=== PATIENT | female | born 1950 | race Caucasian/White ===

== ENCOUNTER 2024-09-13 12:13 | Emergency (ER) | payer OTHER, SELFPAY ==
[2024-09-13 12:34] VITALS: BP 187/82; PULSE 77; TEMP 36.6; O2SAT 99; BMI 24.9
--- NOTE | 2024-09-13 12:42 | XR_ITS ---
[address] [address] Patient Name: NURA KIRKPATRICK MRN: [id number] date: 1950 Sex: F Assigned Patient Location: ER Current Patient Location: Accession/Order Number: [id number] Exam Date: 09/13/2024 12:50 Report Date: 09/13/2024 13:15 At the request of: KAMILA CASTILLO Procedure: XR shoulder RT min 2V PROCEDURE: XR shoulder RT min 2V COMPARISON: None. HISTORY: fall FINDINGS: BONES:Limited nonorthogonal nonstandard projections. A dislocation is not excluded. No definite fracture. Moderate spondylosis of the spine SOFT TISSUES:Negative. No visible soft tissue swelling. EFFUSION:None visible. OTHER: Negative. XR/XR shoulder RT min 2V IMPRESSION: Indeterminate for dislocation Electronically authenticated by: JUAN CONTRERAS Date: 09/13/2024 13:15
--- NOTE | 2024-09-13 12:42 | CT_ITS ---
The [address] [address] Patient Name: NURA KIRKPATRICK MRN: [id number] date: 1950 Sex: F Assigned Patient Location: ER Current Patient Location: ER Accession/Order Number: [id number] Exam Date: 09/13/2024 12:50 Report Date: 09/13/2024 13:15 At the request of: KAMILA CASTILLO Procedure: CT head/brain wo con EXAM: CT head/brain wo con HISTORY: fall COMPARISON: None. TECHNIQUE: Axial soft tissue and bone windows through the calvarium with coronal and sagittal reformats. CT dose reduction technique was used including Automated Exposure Control. Findings: No depressed or calvarial fracture. The paranasal sinuses and mastoid air cells are well aerated. No air-fluid levels. No extra-axial fluid collection. No intra-axial or extra-axial bleed. No mass effect or midline shift. The soria-white matter differentiation is preserved. There are white matter low attenuation lesions which are nonspecific but commonly attributed to chronic small vessel ischemic disease. The brain parenchymal volume is reduced yet likely age-appropriate. The ventricles are nondilated. The basal cisterns are patent. The craniovertebral junction is unremarkable. CT/CT head/brain wo con IMPRESSION: 1. No depressed or calvarial fracture. 2. No acute intracranial bleed. 3. Senescent changes. Electronically authenticated by: VANESAS LO Date: 09/13/2024 13:15
--- NOTE | 2024-09-13 13:43 | CT_ITS ---
[address] [address] Patient Name: NURA KIRKPATRICK MRN: [id number] date: 1950 Sex: F Assigned Patient Location: ER Current Patient Location: ER Accession/Order Number: [id number] Exam Date: 09/13/2024 13:50 Report Date: 09/13/2024 14:38 At the request of: KAMILA CASTILLO Procedure: CT shoulder RT wo con EXAMINATION: CT shoulder RT wo con HISTORY: poss dislocation COMPARISON: Plain x-ray same day TECHNIQUE: Multi-planar CT images were created without IV contrast. Dose reduction techniques were achieved by using automated exposure control and/or adjustment of mA and/or kV according to patient size and/or use of iterative reconstruction technique. FINDINGS: BONES: No acute fracture or dislocation. The glenohumeral and acromioclavicular joints are intact. Mild acromioclavicular joint and moderate glenohumeral joint osteoarthritis SOFT TISSUES: Negative. No visible soft tissue swelling. EFFUSION: None visible. OTHER: Partially visualized 5 mm nodule in the right upper lobe axial image 49 CT/CT shoulder RT wo con IMPRESSION: Osteoporosis with no acute fracture or dislocation Electronically authenticated by: JUAN CONTRERAS Date: 09/13/2024 14:38
--- NOTE | 2024-09-13 14:00 | CT_ITS ---
The [address] [address] Patient Name: NURA KIRKPATRICK MRN: [id number] date: 1950 Sex: F Assigned Patient Location: ER Current Patient Location: ER Accession/Order Number: [id number] Exam Date: 09/13/2024 14:04 Report Date: 09/13/2024 15:05 At the request of: KAMILA CASTILLO Procedure: CT facial bones wo con EXAM: CT facial bones wo con HISTORY: trauma COMPARISON: Brain and cervical spine CT is dictated separately. TECHNIQUE: Noncontrast CT of the facial bones FINDINGS: Soft tissue swelling is present over the bridge of the nose with a nondisplaced fracture of both the right and left nasal bones. Orbital contents are symmetrical. No additional facial bone fracture. Mandible and temporomandibular joints are properly aligned. CT/CT facial bones wo con IMPRESSION: Nondisplaced fractures of the bilateral nasal bones. Electronically authenticated by: YVETTE JOYA Date: 09/13/2024 15:05
--- NOTE | 2024-09-13 14:00 | CT_ITS ---
The [address] [address] Patient Name: NURA KIRKPATRICK MRN: [facility]:[id number] date: 1950 Sex: F Assigned Patient Location: ER Current Patient Location: ER Accession/Order Number: [id number] Exam Date: 09/13/2024 14:04 Report Date: 09/13/2024 14:36 At the request of: KAMILA CASTILLO Procedure: CT cervical spine wo con PROCEDURE: CT cervical spine wo con COMPARISON: None. HISTORY: trauma TECHNIQUE: Axial, Coronal, and Sagittal CT images obtained without IV contrast. Dose reduction techniques were achieved by using automated exposure control and/or adjustment of mA and/or kV according to patient size and/or use of iterative reconstruction technique. FINDINGS: PARASPINAL AREA: Normal with no visible mass. DISCS: Mild multilevel disc space narrowing. Posterior disc/osteophyte complex is most significant at C4-5, C5-C6 and C6-C7. No definite central or foraminal stenosis BONES: Normal alignment with no acute fracture or spondylolisthesis. Mild degenerative spondylosis and facet osteoarthropathy OTHER: Negative. CT/CT cervical spine wo con IMPRESSION: No acute traumatic abnormality Electronically authenticated by: JUAN CONTRERAS Date: 09/13/2024 14:36
--- NOTE | 2024-09-13 14:05 | ED_ITS ---
HPI HPI - General Adult General Chief complaint: Head Injury Stated complaint: FELL Time Seen by Provider: 09/13/24 12:43 Source: patient and family Mode of arrival: walk-in Limitations: no limitations History of Present Illness HPI narrative: Patient presents to ED after a fall. She was walking outside of the [employer] and her foot got caught on a lip of cement and she fell forward. She has pain in the right shoulder pain in the nose and upper lip as well as chin. She denies loss of consciousness. She is on a baby aspirin but otherwise no other blood thinners. She denies any chest pain or shortness of breath. She has no hip pain or leg pain. She is alert and oriented and in no acute distress. She denies any neck pain. 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 No other complaints at this time. Related Data Previous Rx's ?Medication ?Instructions ?Recorded amoxicillin 875 mg-potassium 1 tab PO BID 7 days #14 tabs 09/13/24 clavulanate 125 mg tablet tramadol 25 mg tablet 25 mg PO Q6H PRN pain #14 tabs 09/13/24 Allergies Allergy/AdvReac Type Severity Reaction Status Date / Time No Known Drug Allergies Allergy Verified 09/13/24 12:34 Opioid HPI Opioid Management Most Recent Opioid Data: No Data to Display Review of Systems ROS Status of ROS 10 or more systems reviewed and unremark able except as noted in history and below PFSH PFSH Social History Little interest or pleasure in doing things: not at all Feeling down, depressed, or hopeless: not at all Exam Narrative Exam Narrative: Time Seen: [] Vital Signs: [Per nurse's notes.] General: [Alert] Skin: [Warm, dry, no rash.] Head: Nasal bone and ecchymosis and swelling. Abrasion to the nose upper lip and ecchymosis to the chin Neck: [Supple, trachea midline.] Eye: [Pupils are equal, round and reactive to light, extraocular movements are intact, normal conjunctiva.] Ears, nose, mouth and throat: oral mucosa moist. Intraoral laceration on the upper lip, bleeding controlled Cardiovascular: [Regular rate and rhythm, no murmur.] Respiratory: [Lungs are clear to auscultation, respirations are non-labored, breath sounds are equal.] Chest wall: [No tenderness, no deformity.] Gastrointestinal: [Soft, nontender, non distended, normal bowel sounds.] MSK: 5 out of 5 muscle strength x 4 extremities no calf pain or edema. No hip pain, pelvis is stable. Pain with range of motion of the right shoulder. No rmal distal pulses and sensation Lymphatics: [No lymphadenopathy.] Psychiatric: [Cooperative, appropriate mood & affect.] Neurological: [Alert and oriented to person, place, time, and situation, no focal neurological deficit observed.] Constitutional Vital Signs, click to edit/add: Last Vital Signs Temp 98 F 09/13/24 12:34 Pulse 80 09/13/24 15:42 Resp 18 09/13/24 15:42 BP 146/88 H 09/13/24 15:42 Pulse Ox 98 09/13/24 15:42 O2 Del Method Room Air 09/13/24 12:34 Course Vital Signs Vital signs: Vital Signs Temperature 98 F 09/13/24 12:34 Pulse Rate 77 09/13/24 12:34 Respiratory Rate 18 09/13/24 12:34 Blood Pressure 187/82 H 09/13/24 12:34 Pulse Oximetry 99 09/13/24 12:34 Oxygen Delivery Method Room Air 09/13/24 12:34 Temperature 98 F 09/13/24 12:34 Pulse Rate 80 09/13/24 15:42 Respiratory Rate 18 09/13/24 15:42 Blood Pressure 146/88 H 09/13/24 15:42 Pulse Oximetry 98 09/13/24 15:42 Oxygen Delivery Method Room Air 09/13/24 12:34 Medical Decision Making MDM Narrative Medical decision making narrative: Patient CT scans are negative except for nasal bone fracture. X-ray of the shoulder was inconclusive and CT of the shoulder does not show any acute fractur e or dislocation. Patient was placed in a shoulder sling for comfort. She has a follow-up with Dr. Hart on Wednesday at 1230. She was given pain medication for home. Wound care to the abrasions on the face. The intraoral laceration will heal fine on its own. Return to ED if worsening symptoms confusion nausea vomiting or any further concerns. Patient and family are comfortable care plan for home Differential Diagnosis Differential Diagnosis: Fracture sprain strain contusion abrasion Imaging Data CT scan - head: Radiologist's impression: ITS Impressions Head CT 09/13/24 12:42 IMPRESSION: 1. No depressed or calvarial fracture. 2. No acute intracranial bleed. 3. Senescent changes. Electronically authenticated by: VANESSA LO Date: 09/13/2024 13:15 Shoulder X-Ray 09/13/24 12:42 IMPRESSION: Indeterminate for dislocation Electronically authenticated by: JUAN CONTRERAS Date: 09/13/2024 13:[address] 09/13/24 13:43 IMPRESSION: Osteoporosis with no acute fracture or dislocation Electronically authenticated by: JUAN CONTRERAS Date: 09/13/2024 14:[address] 09/13/24 14:00 IMPRESSION: No acute traumatic abnormality Electronically authenticated by: JUAN CONTRERAS Date: 09/13/2024 14:[address] 09/13/24 14:00 IMPRESSION: Nondisplaced fractures of the bilateral nasal bones. Electronically authenticated by: YVETTE JOYA Date: 09/13/2024 15:05 Discharge Plan Discharge Chief Complaint: Head Injury Clinical Impression: Shoulder sprain, Fracture of nasal bone, Laceration of lip, Abrasion head Patient Disposition: Home, Self-Care Time of Disposition Decision: 15:21 Condition: Good Mode of Transportation: Private Vehicle Prescriptions / Home Meds: New amoxicillin-pot clavulanate 875-125 mg tablet 1 tab PO BID 7 Days Qty: 14 0RF tramadol 25 mg tablet 25 mg PO Q6H PRN (Reason: pain) Qty: 14 0RF Print Language: Faroese Instructions: Nasal Fracture (ED), Shoulder Sprain (ED), Abrasion (ED) Referrals: Quang Lopez DO [Primary Care Provider] - 1 week Fuentes Hart MD [Physician] - 09/18/24 12:30 pm Discharge Date/Time: 09/13/24 15:43
[2024-09-13 14:24] VITALS: BP 166/88; PULSE 70; O2SAT 98
[2024-09-13] MEDS: BACITRACIN 0.9 GM PACKET 1 PACKET TOPICAL (15:41)
[2024-09-13 15:42] VITALS: BP 146/88; PULSE 80; O2SAT 98
== END 2024-09-13 15:43 | disposition home or self-care (01) ==
PROVIDERS: Emergency Provider Emergency Medicine; PCP Family Medicine
DX: S43.401A Unspecified sprain of right shoulder joint, initial encounter (principal); S01.511A Laceration without foreign body of lip, initial encounter; S02.2XXA Fracture of nasal bones, initial encounter for closed fracture; W01.0XXA Fall on same level from slipping, tripping and stumbling without subsequent striking against object, initial encounter; M81.0 Age-related osteoporosis without current pathological fracture; S00.91XA Abrasion of unspecified part of head, initial encounter; Z79.82 Long term (current) use of aspirin
CPT/HCPCS: 70450; 70486; 72125; 73030; 73200; 99285

== ENCOUNTER 2024-10-03 14:20 | Outpatient (OUT) | payer OTHER, MEDICARE, SELFPAY ==
--- NOTE | 2024-10-03 14:38 | MR_ITS ---
[place] [id number] Patient Name: NURA KIRKPATRICK MRN: [id number] date: 1950 Sex: F Assigned Patient Location: MRI Current Patient Location: Accession/Order Number: [id number] Exam Date: 10/03/2024 14:45 Report Date: 10/05/2024 04:41 At the request of: DENNIS BRANTLEY Procedure: MR shoulder RT wo con EXAMINATION: MR shoulder RT wo con HISTORY: Acute Pain Of Right Shoulder 25.511 COMPARISON: No relevant comparison available. TECHNIQUE: A variety of imaging planes and parameters were utilized for visualization of suspected pathology. Imaging was performed without or with contrast as indicated by examination type. FINDINGS: ROTATOR CUFF REGION CUFF TENDONS: Severe increased signal intensity in the supraspinatus tendon indicates tendon degeneration and/or tendinitis. No katarina tear is seen. Marked increased signal intensity within the subscapularis tendon without appreciable disruption. CUFF MUSCLES: Normal appearing muscles. DELTOID: No significant atrophy or tear. LONG BICEPS TENDON: No abnormal signal, attrition, or tear. LABRUM/BICEPS ANCHOR SUPERIOR: No visible labral tear or biceps anchor pathology. ANTERIOR/INFERIOR: No visible tear or attrition. POSTERIOR: No posterior labrum abnormality. CAPSULE No visible capsular laxity or thickening. AC JOINT REGION AC JOINT: Moderate osteoarthropathy with mild-moderate narrowing of the underlying coracoacromial arch. AC LIGAMENTS: Normal acromioclavicular ligament. CC LIGAMENTS: Normal coracoclavicular ligaments. ACROMION: Normal horizontal (Type I) configuration. SUBACROMIAL BURSA: Trace amount of fluid within the subacromial-subdeltoid bursa. HYALINE CARTILAGE: No visible cartilage narrowing or focal defect. OTHER BONES: Normal proximal humerus, glenoid, and coracoid. OTHER OBSERVATIONS: No other significant findings or glenohumeral effusion. MR/MR shoulder RT wo con IMPRESSION: 1. High-grade tendinitis/tendinopathy of the supraspinatus tendon and subscapularis tendon without convincing tear. 2. Moderate degenerative changes of the acromioclavicular joint. Electronically authenticated by: KELI PITTMAN Date: 10/05/2024 04:41
== END 2024-10-03 14:21 | disposition home or self-care (01) ==
LOC: MRI 14:25
PROVIDERS: PCP Family Medicine; Visit Provider Physician Assistant
DX: M25.511 Pain in right shoulder (principal); M75.31 Calcific tendinitis of right shoulder; M19.011 Primary osteoarthritis, right shoulder
CPT/HCPCS: 73221

== ENCOUNTER 2024-11-17 12:49 | Outpatient (RCR) | payer OTHER, MEDICARE, SELFPAY | END 2024-12-16 08:14 | disposition home or self-care (01) | LOC: PT 12:49 | PROVIDERS: PCP Family Medicine; Visit Provider Orthopaedic Surgery | DX: M75.81 Other shoulder lesions, right shoulder (principal); M75.101 Unspecified rotator cuff tear or rupture of right shoulder, not specified as traumatic | CPT/HCPCS: 97110; 97161 ==

== ENCOUNTER 2025-08-31 09:53 | Outpatient (OUT) | payer OTHER, MEDICARE, SELFPAY ==
--- OUTSIDE RECORDS SUMMARY | 2025-08-31 10:02 | XMS_ITS | Patient Health Record ---
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 .PLEASE OBTAIN AUTHORIZATION FOR MRI RIGHT SHOULDER Diagnosis 1 Acute pain of right shoulder (M25.511) Referral Organization [facility] Referring Provider First Name Fuentes Referring Provider Last Name Tanner Referring Provider Speciality Orthopedic Surgery Referred Organization [facility] yuli Referred Address [place], [place], Procedure 1 MRI Joint Upper Ext w/o Dye ([id number]) General Notes Liat Hilliard 024 10:18:51 AM >PER [facility], PATIENT IS ACTIVE PART A AND PART B, NO AUTH REQUIRED MA NOTIFIED REF FAXED TO Jared HAMMOND Kimberly 09/19/2024 05:06:50 PM > Faxed to [place] Referral Priority Routine Social History Tobacco Use: Social History Observation Description Date Details (start date - stop date) Never Smoker NA - NA AUDIT-C (Standard) Question Answer Notes Did you have a drink containing alcohol in the p ast year? No Evocoo9UrwrezirikzxazCvkhjyxlKabxdod Control (Standard) Question Answer Notes Tobacco use: Nonsmoker Problems Problem Type SNOMED Code ICD Code Onset Dates Problem Status W/U Status Risk Notes Problem [id number] Traumatic inc omplete tear of right rotator cuff, initial encounter (S46.011A) [id number] of right rotator cuff, unspecified tear extent, unspecified whether traumatic (M75.101)Activeconfirmed Vital Signs Height 4'9 in 01/01/2025 [employer]479 lbs01/01/2025BMI24.8801/01/2025 Encounters Encounter Location Date Provider Diagnosis [facility] [address] [place] [address] 09/18/2024 Marya Schulte Acute pain of right shoulder M25.511 [facility] [address] [place] [address] 10/09/2024 Fuentes Hart Traumatic incomplete tear of right rotator cuff, initial encounter S46.011A [facility] [address] [place] [address] 11/06/2024 [facility] Right rotator cuff tendonitis M75.81 and Tear of right rotator cuff, unspecified tear extent, unspecified whether traumatic M75.101 [facility] [address] [place] [address] 01/01/2025 Marya [facility] Right rotator cuff tendonitis M75.81 and Traumatic incomplete tear of right rotator cuff, initial encounter S46.011A [facility] [address] [place] [address] 02/26/2025 Fuentes Hart Bursitis of right shoulder M75.51 ; Right shoulder tendonitis M77.8 and Tear of right rotator cuff, unspecified tear extent, unspecified whether traumatic M75.101 Assessments Encounter Date Diagnosis (ICD Code) Assessment Notes Treatment Notes Treatment Clinical Notes Section Notes 09/18/2024 Acute pain of right shoulder ( D-10 - M25.511) Right rotator cuff tear10/09/2024Traumatic incomplete tear of right rotator cuff, initial encounter (ICD-10 - S46.011A)11/06/2024Right rotator cuff tendonitis (ICD-10 - M75.81)11/06/2024Tear of right rotator cuff, unspecified tear extent, unspecified whether traumatic (ICD-10 - M75.101)01/01/2025Right rotator cuff tendonitis (ICD-10 - M75.81)01/01/2025Traumatic incomplete tear of right rotator cuff, initial encounter (ICD-10 - S46.011A)02/26/2025ursitis of right shoulder (ICD-10 - M75.51)02/26/2025Right shoulder tendonitis (ICD-10 - M77.8)02/26/2025Tear of right rotator cuff, unspecified tear extent, unspecified whether traumatic (ICD-10 - M75.101)09/18/2024OtherFor the patient's shoulder pain after fall I have ordered an MRI of the shoulder to evaluate for any rotator cuff tearing. We will see her back after imaging is complete to review and offer further recommendations. I did demonstrate some stretching that she can do on her own while we are waiting for the results. She can discontinue the sling as tolerated.Right rotator cuff tear10/09/2024Other For right shoulder injury I recommended additional 2 weeks of rest. I reviewed home exercises to work on restoring motion which she is to start in 2 weeks. She will follow-up in 4 weeks to reassess her progress and at that time likely get her into physical therapy. Import medication 11/06/2024OtherFor the patient's shoulder pain she is over 2 months out from her fall and doing better as her motion has returned to normal. I did give her a prescription for physical therapy as she is still havingsome pain with certain movements and we will see her back in 6 weeks.01/01/2025OtherPatient is doing well overall but is still having some pain and some reduced internal rotation making it difficult for some activities of daily living. I did discuss risks and benefits of doing a corticosteroid injection and patient wished to proceed. I did provide this for her today. I encouraged her to continue her home exercises to improve her internal rotation. We will see her back in 8 weeksfor reevaluation.02/26/2025OtherPatient had good relief with the previous steroid injection and like to repeat a right shoulder injection today. Plan Of Treatment No Information Insurance Providers Payer Name Payer Address Payer Phone Subscriber Number Group Number Insured Name Patient Relationship to Insured Coverage Start Date Coverage End [place] [address] [place] [address] [id number] Jacqueline KIRKPATRICK - patient is the insured[facility] HospitalPO [address] [address] [place] [id number], DONNASelf - patient is the insured Medications Administered Medication Instructions Date of Administration Dosage Notes BUPIVACAINE vFWPMEBZGWFLZ71/05/20252 mLDepo-Hnouse24 mLDepo-Medrol ePrbwmbqbpv62/10/20252 pTfglmtroay87/05/20252 mL Medical (General) History Medical History History ICD Code Cancer High Blood PressureHepatitisBariatric Surgery:Surgical History Surgery Date(Month/Year) Heel spur Rotator cuffBariatric [id number]
--- OUTSIDE RECORDS SUMMARY | 2025-08-31 10:04 | XMS_ITS | CCD ---
[facility] [place] [facility] Team Providers Care Model Photographers' Name Role Phone RHIANNA HUTCHISON Unavailable Unavailable RHIANNA HUTCHISON Unavailable Unavailable Kuns, Quang Unavailable Kuns, DO Quang Primary Care Provider Kuns, DO Quang Attending Provider Kuns, DO Quang Referring Provider Self, Referral Attending Provider Unavailable RHIANNA HUTCHISON Referring Unavailable RHIANNA HUTCHISON Attending Unavailable Kuns, DO Quang Primary Care Provider Kuns, DO Quang Attending Provider Self, Referral Attending Provider Unavailable Kuns, DO Quang Primary Care Provider Kuns, DO Quang Attending Provider Self, Referral Attending Provider Unavailable Kuns DOQuang Primary Care Provider Kuns DOQuang Attending Provider [phone] Kuns DOQuang Primary Care Provider Kuns Quang DAVILA Attending Provider Kuns, Quang Primary Care Unavailable Kuns, Quang Attending Unavailable Kuns, Quang Admitting Unavailable Kuns, Quang Primary Care Unavailable Kuns, Quang Attending Unavailable Kuns, Quang Admitting Unavailable Kuns, Quang Attending Unavailable Kuns, Quang Admitting Unavailable Kuns, Quang Primary Care Unavailable Kuns, Quang Primary Care Unavailable Kuns, Quang Attending Unavailable Kuns, Quang Admitting Unavailable Self, Referral Admitting Unavailable Self, Referral Attending Unavailable Kuns, Quang Primary Care Unavailable Kuns, Quang Primary Care Unavailable Kuns, Quang Attending Unavailable Kuns, Quang Admitting Unavailable Kuns, Quang Primary Care Unavailable Quang Lopez Attending Unavailable Quang Lopez Admitting Unavailable Quang Lopez Primary Care Unavailable Quang Lopez Attending Unavailable Quang Lopez Admitting Unavailable Allergies Allergy ClassificationReported Allergen(s)Allergy TypeDate of OnsetReaction(s) Facility (16 sources)celecoxib; Translations: [CELECOXIB]Drug Booedza17-99-0931tnlma [facility] Repository (18 sources)rofecoxib; Translations: [ROFECOXIB]Drug Bpijlvn07-30-2924Cfilutq ReactionMercy Health [facility] Hospital RepositoryComment on above:retain fluids (4 sources)celecoxibDrug AllergyedemaNaval Hospital [facility] [employer] Other (4 sources)valdecoxibDrug AllergyP[facility] [employer] Other (16 sources)valdecoxib; Translations: [valdecoxib]Drug Sbcdrpp58-29-1060Lzjpaow Reaction, Unknown Reaction, edemaAultman HospitalComment on above:retain fluids Medications Current Medications MedicationDrug Class(es)DatesSig (Normalized)Sig (Original)Aspir-81 81 MG (4 sources)take 1 tablet by mouth once dailyAspir-81 81 MG 1 tablet Orally Once a day Activeaspirin 81 mg delayed release oral tablet (15 sources)Platelet Aggregation Inhibitor, Nonsteroidal Anti-inflammatory Drug Start: 28-97-6254zqjq 1 tablet by mouth once dailybiotin 10 mg oral capsule (19 sources)Start: 30-90-5993guwn 1 capsule by mouth once dailytake 1 capsule by mouth twice dailyBiotin 5000 1 1 cap By Mouth BID Activecalcium citrate 500 mg oral tablet (4 sources)take 1 capsule by mouth once dailyCalcium Citrate 500 mg 1 cap(s) p.o. Once a day Activecalcium citrate 1500 mg / cholecalciferol 200 unt oral tablet (15 sources)Vitamin DStart: 99-01-3015ajgg 1 tablet by mouth three times daily Centrum 2 (4 sources)Centrum 2 2 chews By Mouth Daily Activeferrous sulfate 325 mg oral tablet (19 sources)Start: 81-35-0188pnee 1 tablet by mouth once dailytake 1 tablet by mouth once dailyFerrous Sulfate 325 (65 Fe) MG 1 tablet Orally Once a day Active Magnesium (19 sources)Start: 58-82-5377lmga 2 tablets by mouth once dailyStart: 01-16-2019 take 2 tablets by mouth once dailyMagnesium 200 mg Tablet Active 400 MG PO Daily January 16, 2019 12:00am Complies with drug therapyStart: 08-69-8089czxj 2 tablets by mouth once dailyMagnesium 200 mg Tablet Active 400 MG PO Daily January 16, 2019 12:00amStart: 83-47-3077ucfy 2 tablets by mouth once dailyMagnesium 200 mg Tablet Active 400 MG PO Daily January 15, 2019 11:00pmStart: 01-16-2019 take 400 mg by mouth once dailyMagnesium Active 400 MG PO Daily January 15, 2019 11:00pmStart: 06-05-9493jhgd 400 mg by mouth once dailyMagnesium Active 400 MG PO Daily January 16, 2019 12:00amtake 2 tablets by mouth once dailyMagnesium 200 MG 2 tablets with a meal Orally Once a day Activemelatonin 10 mg oral tablet (20 sources)Start: 85-36-1494ljnr 1 tablet by mouth at bedtime as needed for sleepStart: 88-41-7116objr 1 tablet by mouth at bedtime as needed for sleep Start: 77-64-2983mnce 1 tablet by mouth at bedtimeMelatonin 3 MG 1 tablet along with a 10 mg tablet Orally HS Dec, Activetake 1 tablet by mouth at bedtimeMelatonin 10 MG 1 tablet along with a 3 mg tablet Orally HS Active Multivitamin preparation (7 sources)Start: 94-21-5360lvsl 2 tablets by mouth once dailyMultivitamin Active 2 TAB PO Daily January 15, 2019 11:00pmStart: 98-70-3705gmrw 2 tablets by mouth once dailyMultivitamin Active 2 TAB PO Daily January 16, 2019 12:00am Multivitamin Tablet,Chewable (8 sources)Start: 37-03-7802pxgv 2 tablets by mouth once dailyStart: 01-16-2019 take 2 tablets by mouth once dailyMultivitamin Tablet,Chewable Active 2 TAB PO Daily January 16, 2019 12:00am Complies with drug therapyStart: 27-26-2120feil 2 tablets by mouth once dailyMultivitamin Tablet,Chewable Active 2 TAB PO Daily January 16, 2019 12:00amStart: 85-62-9716uvgw 2 tablets by mouth once daily Multivitamin Tablet,Chewable Active 2 TAB PO Daily January 15, 2019 11:00pm sucralfate 1000 mg oral tablet (20 sources)Aluminum ComplexStart: 11-11-5669asvy 1 tablet by mouth twice daily Start: 36-39-2984pkfy 1 tablet by mouth once dailySucralfate 1 GM 1 tablet on an empty stomach Orally 1 time per day for 90 days Oct, ActiveStart: 52-88-0152ulof 1 tablet by mouth every other daySucralfate 1 GM 1 tablet on an empty stomach Orally every other day for 30 day(s) Oct, ActiveStart: 98-64-3282xuuw 1 tablet by mouth every other daySucralfate 1 GM 1 tablet on an empty stomach Orally every other day for 30 day(s) Oct, ActiveStart: 09-25-2020 End: 84-54-9031wuwd 1 tablet by mouth four times dailySucralfate 1 gram tablet Discontinued 1 GM PO Four times daily 360 90 February 16, 2024 11:46am August 30, 2024 10:24amtake 1 tablet by mouth every twelve hoursCarafate 1 GM 1 tablet Orally Twice a day Not-Taking Completed/Discontinued Medications MedicationDrug Class(es)DatesSig (Normalized)Sig (Original)cholecalciferol 0.05 mg oral tablet (19 sources)Vitamin DStart: 01-16-2019 End: 64-25-6701cxcf 1 tablet by mouth once dailyCholecalciferol (Vitamin D3) (Vitamin D3) 2,000 unit Tablet Discontinued 2000 UNIT PO Daily January 16, 2019 12:00am February 16, 2024 11:02amtake 1 tablet by mouth every twenty-four hours Vitamin D 50 MCG (2000 UT) 1 tablet Orally Once a day ActiveDiclofenac (4 sources)Nonsteroidal Anti-inflammatory DrugStart: 10-58-8320Urowuqea 1 % apply 1-2 grams to affected area Transdermal BID PRN for 30 days Jun, Not-TakingStart: 44-19-8577Dupvnwmc 1 % apply 1-2 grams to affected area Transdermal BID PRN for 30 days Jun, Not-Takingfluocinonide 0.5 mg/ml topical cream (4 sources)CorticosteroidStart: 88-07-5003Wyxmrcsiiseh 0.05 % 1-2 grams up to 3 times weekly with PT phonophoresis Jun, Not-TakingStart: 07-02-2020 Fluocinonide 0.05 % 1-2 grams up to 3 times weekly with PT phonophoresis Jun, Not-Takingmetoprolol tartrate 25 mg oral tablet (20 sources)beta-Adrenergic BlockerStart: 12-23-2023 End: 98-95-9086fwju 0.5 tablet by mouth once daily in the morning, then take 0.5 tablet by mouth once daily in theeveningMetoprolol Tartrate 25 mg tablet Discontinued MG PO December 23, 2023 1:00am December 23, 2023 1:38pm FreeTextSi/2 tab QAM and 1/2 tab QPM Orally as directed; Note: Source Status: Continue; Provider: Jessica Del Rio PStart: 01-16-2019 End: 39-06-0147Qptrpjhdik Tartrate 25 mg tablet Discontinued 12.5 MG PO Twice daily December 13, 2024 11:21amAugust 2024 10:58amStart: 01-16-2019 End: 14-73-9145wvhx 12.5 mg by mouth twice dailyMetoprolol Tartrate Discontinued 12.5 MG PO Twice daily December 23, 2023 12:37pm May 1:06pm Start: 45-71-0776kzre 0.5 tablet by mouth once daily in the morning, then take 0.5 tablet by mouth once daily in theeveningMetoprolol Tartrate 25 MG 1/2 tab QAM and 1/2 tab QPM Orally as directed February, ActivepredniSONE 20 mg oral tablet (16 sources)Start: 04-03-2025 End: 53-68-8080Fgihnjbcud 20 mg tablet Discontinued 20 MG PO .COMPLEX April 03, 2025 12:00am July 06, 2025 11:01am 20 mg orally BID for five days, QD for five days;Start: 08-30-2024 End: 07-05-5404Suuuqwmkgd 10 mg tablet Discontinued 10 MG PO As Directed August 30, 2024 1:00am October 02, 2024 12:02pm BID x 5 days then daily x 5 daysTriamcinolone (4 sources)CorticosteroidStart: 70-98-2401Abaubil -40 mg Jun, 40 mg Problems Active Problems Problem ClassificationProblemDateDocumented DateEpisodic/ChronicAbdominal pain (20 sources)Left sided abdominal pain; Translations: [Unspecified abdominal pain]Onset: 535511-87-6019AqrurowyFfvtpi of uterus (5 sources)Malignant neoplasm of uterus; Translations: [Malignant neoplasm of uterus, part unspecified]Onset: 76-64-9908QycakzpYcaugerdzkv and hemorrhagic disorders (16 sources)Finding related to bruising; Translations: [Spontaneous ecchymoses] Onset: 829585-85-7627KkdemisiFpkhkymf mellitus without complication (12 sources)Hyperglycemia; Translations: [Hyperglycemia, unspecified]Episodic Diseases of white blood cells (4 sources)Eosinophil count raised; Translations: [Eosinophilia]ChronicDisorders of lipid metabolism (20 sources)Hyperlipidemia; Translations: [Hyperlipidemia, unspecified]Onset: 94-21-2029GhlklyuTegysrpliyozku and diverticulitis (4 sources)Diverticulosis of sigmoid colon; Translations: [Diverticulosis of large intestine without perforation or abscess without bleeding]Chronic Esophageal disorders (4 sources)Gastroesophageal reflux disease; Translations: [Gastro-esophageal reflux disease without esophagitis]ChronicEssential hypertension (20 sources)Hypertensive disorder; Translations: [Essential (primary) hypertension]Onset: 05-20-2022 Resolved: 03-75-6294DaldstqKelhxaudeehkgz ulcer (except hemorrhage) (20 sources)Gastrojejunal ulcer; Translations: [Gastrojejunal ulcer, unspecified as acute or chronic, without hemorrhage or perforation]Onset: 43-02-7825Xdzfzfc Headache; including migraine (4 sources)Episodic tension-type headache; Translations: [Episodic tension-type headache, not intractable]ChronicNutritional deficiencies (20 sources)Vitamin D deficiency; Translations: [Vitamin D deficiency, unspecified]Onset: 05-20-2022 Resolved: 74-31-1494VivcbutUxvmgsgvkjb deficiencies (13 sources)Iron deficiency; Translations: [Iron deficiency]Onset: 05-20-2022 Resolved: 02-89-8979OtzriqkxRhyam connective tissue disease (11 sources)Fibromyalgia; Translations: [Fibromyalgia]27-23-1388RiohpztqOikha connective tissue disease (1 source)Fibromyalgia; Translations: [Myalgia and myositis, unspecified] 09-61-9932RwebostrHjhkf diseases of kidney and ureters (3 sources)Cyst of kidney; Translations: [Cyst of kidney, acquired]07-23-2025 EpisodicOther gastrointestinal disorders (4 sources)History of bariatric surgical procedure; Translations: [Bariatric surgery status]EpisodicOther gastrointestinal disorders (4 sources)Stool DNA-based colorectal cancer screening positive; Translations: [Other fecal abnormalities]EpisodicOther gastrointestinal disorders (4 sources)Dysphagia; Translations: [Dysphagia, unspecified]EpisodicOther gastrointestinal disorders (15 sources)Occult blood in stools; Translations: [Other fecal abnormalities] 43-69-2237ZllatdgkZdzis gastrointestinal disorders (12 sources)Altered bowel function; Translations: [Change in bowel habit] 78-64-9825TcargksvLlrta gastrointestinal disorders (12 sources)Abdominal mass; Translations: [Intra-abdominal and pelvic swelling, mass and lump, unspecified site]59-57-4684DappsoqnQvzlh gastrointestinal disorders (1 source)Intra-abdominal and pelvic swelling, mass and lump, unspecified site; Translations: [Intra-abdominal and pelvic swelling, mass and lump, unspecified site]Onset: 68-45-4860MurufkvkWzjee gastrointestinal disorders (1 source)Change in bowel habit; Translations: [Change in bowel habit]Onset: 15-62-7247CjgcmvloJbujm injuries and conditions due to external causes (1 source)Food in respiratory tract, part unspecified causing other injury, initial encounter; Translations: [Food in respiratory tract, part unspecified causing other injury, initial encounter]Onset: 37-18-5709YhtptgvdVpfii non- traumatic joint disorders (4 sources)Arthralgia of the lower leg; Translations: [Pain in right knee] EpisodicOther non-traumatic joint disorders (4 sources)Pain in wrist; Translations: [Pain in left wrist]EpisodicOther nutritional; endocrine; and metabolic disorders (15 sources)Unintentional weight loss; Translations: [Abnormal weight loss] 82-64-6727LdlzydrjBdmeh nutritional; endocrine; and metabolic disorders (1 source)Abnormal weight loss; Translations: [Abnormal weight loss]Onset: 50-68-3716ZhsdavocTnmzhvlj codes; unclassified (4 sources)H/O: GIT by-pass; Translations: [Other specified postprocedural states]EpisodicResidual codes; unclassified (4 sources)Insomnia; Translations: [Insomnia, unspecified]EpisodicResidual codes; unclassified (13 sources)Postmenopausal state; Translations: [Asymptomatic menopausal state] 23-74-0543OdpxwhtnFscwogbccynn (1 source)Unknown / UNK(Unknown)Onset: 03-32-1114Nwqleerdtyht (1 source)Food entering into or through a natural orifice, initial encounter; Translations: [Food entering into or through a natural orifice, initial encounter]Onset: 05-29-5811Jhdfk infection (4 sources)Herpes zoster; Translations: [Zoster without complications]Episodic Past or Other Problems Problem ClassificationProblemDateDocumented DateEpisodic/ChronicOther connective tissue disease (3 sources)Pain in right arm; Translations: [Pain in limb]Onset: 08-31-2024 46-80-3449CyohbjygXiqgl gastrointestinal disorders (1 source)Bariatric surgery statusOnset: 05-20-2022 Resolved: 64-46-1679NtxlaatqYqpad non-traumatic joint disorders (11 sources)Pain in right shoulder; Translations: [Pain in joint, shoulder region]Onset: 200082-03-8907UepqwucdGplyz screening for suspected conditions (not mental disorders or infectious disease) (6 sources)Mammography abnormal; Translations: [Other abnormal and inconclusive findings on diagnostic imagingof breast]Onset: 05-20-2022 Resolved: 92-09-7859LppagqsdSeetjckz codes; unclassified (4 sources)Asymptomatic menopausal state; Translations: [Asymptomatic postmenopausal status (age-related) (natural)]Onset: 627943-58-2046 EpisodicUnclassified (1 source)Lumbar pain M54.50Unclassified (1 source)History of COVID-19 Z86.16 Results Test NameValueInterpretationReference RangeFacilityFL upper GI w air*on 50-63-3493NU upper GI w air*[facility] [address] [address] Fluoroscopy Report Signed Patient: Kavya Cade MR#: [id number] : 1950 Acct:[id number] Age/Sex: 75 / F ADM Date: 07/31/25 Loc: XD Room: Type: [facility] Attending Dr: Quang Lopez DO Copies to: Quang Lopez DO Ordering Provider: Quang Lopez DO Date of Service: 07/31/25 FL/FL upper GI w air*: R10.9 - Unspecified abdominal pain FL upper GI w air* 07/31/2025 9:01 AM SIGNS AND SYMPTOMS: Lower abdominal pain, irregular bowel movements PROTOCOL: Fluoroscopic and radiographic images of the abdomen were obtained after oral gas crystals administration and during administration of oral barium based contrast material. COMPARISON: 07/13/2025 FINDINGS: Core Driller Helper radiograph demonstrates surgical clips in the upper quadrants. There is a levoconvex curvature of the thoracolumbar spine with degenerative changes throughout. There is adequate passage of contrast through the esophagus and gastroesophageal junction. There is no mucosal fold thickening, mass, stricture, or ulceration. Contrast is noted penetrating the larynx and lining the anterior trachea on lateral swallows consistent with aspiration of thick barium based contrast material. The contrast administration was terminated at this point. Follow-up with modified barium swallow study is recommended. Images of the stomach and small bowel demonstrates gastric bypass changes with a small diverticulum along the gastric fundus projecting superiorly to the left of midline. There is active gastroesophageal reflux during the exam reaching the proximal third of the esophagus. Contrast passes from the stomach into the small bowel. The small bowel shows no evidence of mass, mucosal thickening, ulceration, or stricture. Cumulative Air Kerma in mGy: 40.45 mGy FL/FL upper GI w air* IMPRESSION: Changes are consistent with gastric bypass. A small diverticulum is noted along the gastric fundus projecting superiorly and to the left of midline. A large amount of gastroesophageal reflux is demonstrated with contrast material reaching the proximal third of the esophagus. The patient aspirated thick barium based contrast material with contrast noted lining the anterior trachea. Follow-up with modified barium swallow study is recommended along with speech pathology consult. Impression dictated by: Alphonso Guerrier M.D. 07/31/2025 10:36 AM Dictation Location: [facility]--24 Transcribed By: BHAVANA 07/31/25 1036 Dictated By: Alphonso Guerrier II, MD 07/31/25 1033 Signed By: 07/31/25 1036[facility] Physician GroupFluoroscopy reportOrdered By: Alphonso Guerrier on 05-32-4907BM Unspecified body region [facility] Shock [address] [place] [address] Fluoroscopy Report Signed Patient: Kavya Cade MR#: [id number] : 1950 Acct:[id number] Age/Sex: 75 / F ADM Date: 5 Loc: XD Room: Type: [facility] Attending Dr: Quang Lopez DO Copies to: Quang Lopez DO~ Ordering Provider: Quang Lopez DO Date of Service: 07/31/25 FL/FL upper GI w air*: R10.9 - Unspecified abdominal pain FL upper GI w air* 07/31/2025 9:01 AM SIGNS AND SYMPTOMS: Lower abdominal pain, irregular bowel movements PROTOCOL: Fluoroscopic and radiographic images of the abdomen were obtained after oral gas crystalsadministration and during administration of oral barium based contrast material. COMPARISON: 07/13/2025 FINDINGS: Core Driller Helper radiograph demonstrates surgical clips in the upper quadrants. There is alevoconvex curvatureof the thoracolumbar spine with degenerative changes throughout. There is adequate passage of contrast through the esophagus and gastroesophageal junction. There is no mucosal fold thickening, mass, stricture, or ulceration. Contrast is noted penetrating the larynx and lining the anterior trachea on lateral swallows consistent with aspiration of thick barium based contrast material. The contrast administration was terminated at this point. Follow-up with modified barium swallow study is recommended. Images of the stomach and small bowel demonstrates gastric bypass changes with asmall diverticulum along the gastric fundus projecting superiorly to the left ofmidline. There is active gastroesophageal reflux during the exam reaching the proximal third of the esophagus. Contrast passes from the stomach into the small bowel. The small bowel shows no evidence of mass, mucosal thickening, ulceration, or stricture. Cumulative Air Kerma in mGy: 40.45 mGy FL/FL upper GI w air* IMPRESSION: Changes are consistent with gastric bypass. A small diverticulum is noted alongthe gastric fundus projecting superiorly and to the left of midline. A large amount of gastroesophageal reflux is demonstrated with contrast materialreaching the proximal third of the esophagus. The patient aspirated thick barium based contrast material with contrast noted lining the anterior trachea. Follow-up with modified barium swallow study is recommended along with speech pathology consult. Impression dictated by: Alphonso Guerrier M.D. 07/31/2025 10:36 AM Dictation Location: [facility]--24 Transcribed By: BHAVANA 07/31/25 1036 Dictated By: Alphonso Guerrier II, MD 07/31/25 1033 Signed By: 07/31/25 1036 [facility] Work Phone: HbA1c HPLC (Bld) [Mass fraction]Ordered By: Quang Lopez on 31-09-3313OeM7t (Bld) [Mass fraction]5.1 %[facility] HospitalCT abdomen pelvis w conon 05-38-2926LL abdomen pelvis w [facility] Shock [address] [place] [address] CT Scan Report Signed Patient: Kavya Cade MR#: [id number] : 1950 Acct:[id number] Age/Sex: 75 / F ADM Date: 07/13/25 Loc: CT Room: Type: [facility] Attending Dr: Quang Lopez DO Copies to: Quang Lopez DO Ordering Provider: Quang Lopez DO Date of Service: 07/13/25 CT/CT abdomen pelvis w con: R10.9 - Unspecified abdominal pain CT Abdomen and Pelvis withcontrast TECHNIQUE: Axial imaging with 2-D reconstruction. The CT exam was performed using one or more the following dose reduction techniques: Automated exposure control, adjustment of the MA and/or Kv according to patient size, or use of the iterative reconstruction technique. COMPARISON: None History: Abdominal pain. Back pain. LIMITATIONS: None LOWER THORAX Unremarkable LIVER: Mild hepatic steatosis. GALLBLADDER: Cholecystectomy clips identified. BILE DUCTS: No dilatation SPLEEN: Unremarkable PANCREAS: Unremarkable ADRENAL GLANDS: Unremarkable KIDNEYS:A 2 cm left renal cyst. There are no obstructive uropathy AORTA: No abdominal aortic aneurysm identified. Atherosclerosis. RETROPERITONEUM: No significant retroperitoneal abnormalities identified. MESENTERY:Unremarkable STOMACH:Gastric surgery changes SMALL BOWEL: The small bowel loops are nondistended. APPENDIX: The appendix is normal. COLON: Nondistended. Small amount of stool throughout the colon. URINARY BLADDER: Urinary bladder is unremarkable. REPRODUCTIVE SYSTEM: Reproductive structures are unremarkable. PNEUMOPERITONEUM: None PERITONEAL FLUID:None BONY STRUCTURES: Degenerative change ABDOMINAL WALL: Unremarkable CT/CT abdomen pelvis w con IMPRESSION: No acute inflammatory changes. No abdominal mass. Mild constipation. No abdominal wall hernia. A gastric surgery changes. Impression dictated by: Roman Cadena M.D. 07/13/2025 3:50 PM Dictation Location: [place] [address] Transcribed By: [facility] 07/13/25 1550 Dictated By: Roman Cadena DO 07/13/25 1540 Signed By: 07/13/25 1550[facility] Physician GroupAlanine aminotransferase [Enzymatic activity/volume] in Serum or PlasmaOrdered By: Quang Lopez on 42-67-3300TZA [Catalytic activity/Vol]33 U/LNormal7-52[facility] HospitalComment on above:Performed By: #### CMP, CBC, PT #### [facility] [address] [place] [address] USAAlbumin [Mass/volume] in Serum or Plasma by Bromocresol green (BCG) dye binding methoOrdered By: Quang Lopez on 39-20-5662Adconme BCG dye [Mass/Vol]3.9 g/dL3.5-5.7FUC Medical CenterAlkaline phosphatase [Enzymatic activity/volume] in Serum or PlasmaOrdered By: Quang Lopez on 34-30-4045UDJ [Catalytic activity/Vol]79 U/EYwseab03-296YftnjyutiAultman HospitalComment on above:Result Comment: PERFORMED BY: [address] [address] PATHOLOGIST WORD PROCESSING SPECIALIST BOYD VELASQUEZ M.D.Performed By: #### CMP, CBC, PT #### [facility] [address] [place] [address] USAAspartate aminotransferase [Enzymatic activity/volume] in Serum or PlasmaOrdered By: Quang Lopez on 92-59-6074YKT [Catalytic activity/Vol] 42 U/MZrrj54-59MoaqiclunAultman HospitalComment on above:Performed By: #### CMP, CBC, PT #### [facility] [address] [place] [address] USABasophils [#/volume] in Blood by Automated countOrdered By: Quang Lopez on 25-83-5255Phmbreipi (Bld) [#/Vol]0.1 10*3/uLNormal0.0-0.2 [facility] HospitalComment on above:Result Comment: PERFORMED BY: [place] [address] PATHOLOGIST WORD PROCESSING SPECIALIST BOYD VELASQUEZ M.D.Performed By: #### CMP, CBC, PT #### [place] [address] USABasophils/100 leukocytes in Blood by Automated count Ordered By: Quang Lopez on 52-43-4927Qouyrvhls/100 WBC (Bld)1.1 %Normal.[facility] HospitalComment on above:Performed By: #### CMP, CBC, PT #### [place] [address] USABilirubin.total [Mass/volume] in Serum or PlasmaOrdered By: Quang Lopez on 84-19-7744Zrcolburv [Mass/Vol]0.6 mg/dLNormal0.3-1.0Aultman HospitalComment on above:Performed By: #### CMP, CBC, PT #### [address] [address] USACalcium [Mass/volume] in Serum or PlasmaOrdered By: Quang Lopez on 28-43-4926Gzcpire [Mass/Vol]9.5 mg/dLNormal8.6-10.3FUC Medical CenterComment on above:Performed By: #### CMP, CBC, PT #### [place] [id number] USACarbon dioxide, total [Moles/volume] in Serum or Plasma Ordered By: Quang Lopez on 07-97-5449PN2 [Moles/Vol]33.8 mmol/LHigh21.0-31.0 [facility]man HospitalComment on above:Performed By: #### CMP, CBC, PT #### [place] [address] USAChloride [Moles/volume] in Serum or PlasmaOrdered By: Quang Lopez on 48-07-3090Zahqmiwx [Moles/Vol]104 mmol/IEjaiji38-685DuvkavbbnAultman HospitalComment on above:Performed By: #### CMP, CBC, PT #### [place] [address] USAComplete Blood Count Auto Diffon 75-10-8649Snzm Corpuscular HGB Conc34.0 g/fWMbngmb40.0-35.0[facility] Physician GroupComment on above:Performed By: #### CMP, CBC, PT #### [place] [address] USANRBC%0.2 /100{WBC}Normal0-0.5[facility] Comment on above:Performed By: #### CMP, CBC, PT #### [place] [address] USAWhite Blood Count5.2 [CFU]/mLNormal3.8-11.6[facility] Physician GroupComment on above:Performed By: #### CMP, CBC, PT #### [place] [address] USAComprehensive Metabolic Panelon 10-06-2481Egaycvc [Mass/Vol]3.9 g/dLNormal3.5-5.7[facility] Physician GroupComment on above: Performed By: #### CMP, CBC, PT #### [place] [address] USAGFR/1.73 sq M.predicted MDRD (S/P/Bld) [Vol rate/Area] mL/min/{1.73_m2}NormalThe Ashe Memorial Hospital Physician GroupComment on above:Performed By: #### CMP, CBC, PT #### [facility] [address] [place] [address] USACreatinine [Mass/volume] in Serum or PlasmaOrdered By: Quang Lopez on 02-56-7402Pqprubvuwd [Mass/Vol]0.58 mg/dLLow0.60-1.20Aultman HospitalComment on above:Performed By: #### CMP, CBC, PT #### [place] [address] USAEosinophils [#/volume] in Blood by Automated countOrdered By: Quang Lopez on 93-17-3248Wxwtomspvxn (Bld) [#/Vol]0.4 10*3/uLNormal0.0-0.45 [facility]ultman HospitalComment on above:Performed By: #### CMP, CBC, PT #### [place] [address] USAEosinophils/100 leukocytes in Blood by Automated count Ordered By: Quang Lopez on 08-87-8721Aeenaflfwrq/100 WBC (Bld)7.7 %Normal. Aultman HospitalComment on above:Performed By: #### CMP, CBC, PT #### [place] [address] USAErythrocyte distribution width [Ratio] by Automated count Ordered By: Quang Lopez on 25-13-1391Gxzkreifsjk distribution width (RBC) [Ratio] 13.0 %Qcnpke82.9-15.3FUC Medical CenterComment on above:Performed By: #### CMP, CBC, PT #### [facility] [address] [place] [address] USAErythrocytes [#/volume] in Blood by Automated countOrdered By: Quang Lopez on 25-23-3197ZEU (Bld) [#/Vol]4.31 10*6/uLNormal3.60-5.00 [facility]ultman HospitalComment on above:Performed By: #### CMP, CBC, PT #### [place] [address] USAGlomerular filtration rate [Volume Rate/Area] in Serum, Plasma or Blood by CreatinineOrdered By: Quang Lopez on 72-80-0839Ikwlbjpyno filtration rate [Volume Rate/Area] in Serum, Plasma or Blood by Creatinine> 60.0 mL/MinAultman HospitalGlucose [Mass/volume] in Serum or Plasma Ordered By: Quang Lopez on 47-94-0392Yuoxgrf [Mass/Vol]114 mg/dHRjim72-793 [facility]man HospitalComment on above:ADA recommended reference rangeRandom Glucose Reference Range is dependent on time and content of last meal. Glucose of more than 200 mg/dL in a nonstressed, ambulatory subject supports the diagnosisof Diabetes Mellitus.Result Comment: Random Glucose Reference Range is dependent on time and content of last meal. Glucose of more than 200 mg/dL in a nonstressed, ambulatory subject supports the diagnosis of Diabetes Mellitus. ADA recommended reference rangePerformed By: #### CMP, CBC, PT #### [facility] [address] [place] [id number] USAHematocrit [Volume Fraction] of Blood by Automated count Ordered By: Quang Lopez on 81-70-6030Gkivyqdbxg (Bld) [Volume fraction]40.9 % Ifcsnp67.0-46.4FUC Medical CenterComment on above:Performed By: #### CMP, CBC, PT #### [facility] [address] [place] [address] USAHemoglobin [Mass/volume] in BloodOrdered By: Quang Lopez on 00-85-5179Uhjnkbmfcn (Bld) [Mass/Vol]13.9 g/bSFhimxe00.8-15.4FUC Medical CenterComment on above:Performed By: #### CMP, CBC, PT #### [facility] [address] [place] [id number] USAINR in Platelet poor plasma by Coagulation assayOrdered By: Quang Lopez on 97-36-8986GAB Coag (PPP) [Relative time]0.9 {INR}Normal Aultman HospitalComment on above:INR Therapeutic Range A) Pre- and Peroperative OAT started two weeks before surgery. NOT HIP SURGERY: 1.5 - 2.5 HIP SURGERY: 2 - 3B) Primary and secondary prevention of venous THROMBOSIS: 2 - 3C) Active venous thrombosis, pulmonary embolismand prevention of recurrent venous thrombosis: 2 - 3D) Prevention of arterial thromboembolismincluding patients with mechanical heart valves: 3 - 4.5Order Comment: List the anticoagulant: ASPIRINResult Comment: INR Therapeutic Range A) Pre- and Peroperative OAT started two weeks before surgery. NOT HIP SURGERY: 1.5 - 2.5 HIP SURGERY: 2 - 3 B) Primary and secondary prevention of venous THROMBOSIS: 2 - 3 C) Active venous thrombosis, pulmonary embolism and prevention of recurrent venous thrombosis: 2 - 3 D) Prevention of arterial thromboembolism including patients with mechanical heart valves: 3 - 4.5 PERFORMED BY: [place] [address] PATHOLOGIST WORD PROCESSING SPECIALIST BOYD VELASQUEZ M.D.Performed By: #### CMP, CBC, PT #### [place] [address] USALeukocytes [#/volume] corrected for nucleated erythrocytes in Blood by Automated counOrdered By: Quang Lopez on 36-19-6570YGV corrected for nucl RBC Auto (Bld) [#/Vol]5.2 10*3/uL3.8-11.[address] [place] [address] Leukocytes [#/volume] in Blood by Automated countOrdered By: Quang Lopez on 43-63-1175GTY (Bld) [#/Vol]5.2 10*3/uLNormal3.8-11.6FUC Medical CenterComment on above:Performed By: #### CMP, CBC, PT #### [facility] [address] [place] [address] USALymphocytes [#/volume] in Blood by Automated countOrdered By: Quang Lopez on 22-01-2399Rirbekddudt (Bld) [#/Vol]1.4 10*3/uLNormal1.00-4.8 [facility]ultman HospitalComment on above:Performed By: #### CMP, CBC, PT #### [facility] [address] [place] [address] USALymphocytes/100 leukocytes in Blood by Automated count Ordered By: Quang Lopez on 03-25-2234Cugantxover/100 WBC (Bld)26.7 %Normal. [facility]ultman HospitalComment on above:Performed By: #### CMP, CBC, PT #### [facility] [address] [Entitic mass] by Automated countOrdered By: Quang Lopez on 83-15-5813NQW (RBC) [Entitic mass]32.2 sbWuqrff33.7-34.3FUC Medical CenterComment on above:Performed By: #### CMP, CBC, PT #### [facility] [address] Auto (RBC) [Mass/Vol]Ordered By: Quang Lopez on 64-40-3379OPOB (RBC) [Mass/Vol]34.0 g/dL32.0-35.0[facility] HospitalV [Entitic volume] by Automated countOrdered By: Quang Lopez on 59-52-7713EKZ (RBC) [Entitic vol]94.8 dOJhpaek92-379UbhlmxiwlAultman HospitalComment on above:Performed By: #### CMP, CBC, PT #### [facility] [address] [place] [address] USAMonocytes [#/volume] in Blood by Automated countOrdered By: Quang Lopez on 09-26-8911Xdbytinoc (Bld) [#/Vol]0.8 10*3/uLNormal0.0-0.8 [facility]ultman HospitalComment on above:Performed By: #### CMP, CBC, PT #### [facility] [address] [place] [address] USAMonocytes/100 leukocytes in Blood by Automated count Ordered By: Quang Lopez on 60-45-8556Ytkzvhabw/100 WBC (Bld)14.5 %Normal. [facility]ultman HospitalComment on above:Performed By: #### CMP, CBC, PT #### [facility] [address] [place] [address] USANeutrophils [#/volume] in Blood by Automated countOrdered By: Quang Lopez on 58-16-5178Zvoiqrsqmlk (Bld) [#/Vol]2.6 10*3/uLNormal1.8-7.7 [facility]ultman HospitalComment on above:Performed By: #### CMP, CBC, PT #### [facility] [address] [place] [address] USANeutrophils/100 leukocytes in Blood by Automated count Ordered By: Quang Lopez on 14-54-5349Tfjlphnytvg/100 WBC (Bld)50.0 %Normal. Aultman HospitalComment on above:Performed By: #### CMP, CBC, PT #### [facility] [address] [place] [address] USANo Panel InformationOrdered By: Quang Lopez on 07-09-2025 Pharmacy Creatinine Clearance (ChemN/AFUC Medical CenterNucleated erythrocytes [Presence] in Blood by Automated countOrdered By: Quang Lopez on 97-40-7774Ffhehuxek RBC Auto Ql (Bld)0.2 /100{WBC}0-0.5FUC Medical CenterPlatelet mean volume [Entitic volume] in Blood by Automated count Ordered By: Quang Lopez on 22-09-1533Yguimqnt mean volume (Bld) [Entitic vol]8.9 fLNormal6.3-10.7FUC Medical CenterComment on above:Performed By: #### CMP, CBC, PT #### [facility] [address] [place] [id number] USAPlatelets [#/volume] in Blood by Automated countOrdered By: Quang Lopez on 97-40-2258Onvuyxsvx (Bld) [#/Vol]272 10*3/oFUcsnfb485-446 [facility]ultman HospitalComment on above:Performed By: #### CMP, CBC, PT #### [facility] [address] [place] [address] USAPotassium [Moles/volume] in Serum or PlasmaOrdered By: Quang Lopez on 23-13-7974Vrkfufgbx [Moles/Vol]3.7 mmol/LNormal3.5-5.1FUC Medical CenterComment on above:Performed By: #### CMP, CBC, PT #### [facility] [address] [place] [address] USAProtein [Mass/volume] in Serum or PlasmaOrdered By: Quang Lopez on 33-23-2499Vdaqtij [Mass/Vol]6.0 g/dLLow6.4-8.9Aultman HospitalComment on above:Performed By: #### CMP, CBC, PT #### [facility] [address] [place] [address] USAProthrombin time (PT)Ordered By: Quang Lopez on 07-09-2025 PT Coag (PPP) [Time]10.7 sNormal9.0-12.9Aultman HospitalComment on above:A hematocrit value greater than 55% may lead to inaccurate results in coagulation testing. Patientshaving hematocrit values >55% require a special collection tube for coagulation studies. Please contact the laboratory at [phone] for redraw instructions.Order Comment: List the anticoagulant: ASPIRINResult Comment: A hematocrit value greater than 55% may lead to inaccurate results in coagulation testing. Patients having hematocrit values >55% require a special collection tube for coagulation studies. Please contact the laboratory at [phone] for redraw instructions.Performed By: #### CMP, CBC, PT #### [facility] [address] [place] [address] USASerum globulin measurement by calculation (mass/volume) Ordered By: Quang Lopez on 41-74-1327Wbzawuhd (S) [Mass/Vol]2.1 g/dLNormal [facility]ultman HospitalComment on above:Performed By: #### CMP, CBC, PT #### [facility] [address] [place] [address] USASerum or plasma albumin/globulin mass ratioOrdered By: Quang Lopez on 37-25-4189Wtsnttz/Globulin [Mass ratio]1.9 {ratio}NormalAultman HospitalComment on above:Performed By: #### CMP, CBC, PT #### [facility] [address] [place] [id number] USASerum or plasma anion gap determinationOrdered By: Quang Lopez on 79-17-8654Yywfd gap [Moles/Vol]8.9 mmol/LNormal6.0-15.0Aultman HospitalComment on above:Performed By: #### CMP, CBC, PT #### [facility] [address] [place] [id number] USASodium [Moles/volume] in Serum or PlasmaOrdered By: Quang Lopez on 99-11-1610Zeuctz [Moles/Vol]143 mmol/NJmrtmp711-596QjzvzzbfgAultman HospitalComment on above:Performed By: #### CMP, CBC, PT #### [facility] [address] [place] [address] USAUrea nitrogen [Mass/volume] in Serum or PlasmaOrdered By: Quang Lopez on 84-11-9451Xbia nitrogen [Mass/Vol]22 mg/dLNormal7-25Aultman HospitalComment on above:Performed By: #### CMP, CBC, PT #### [facility] [address] [place] [id number] USAX-ray reportOrdered By: Ashvin Garza on 76-65-1202Kytvv reportSAMARITAN HOSPITAL [facility] [place] [address] [place] [address] XRay Report Signed Patient: Kavya Cade MR#: [id number] : 1950 Acct:[id number] Age/Sex: 74 / F ADM Date: 4 Loc: XD Room: Type: [facility] Attending Dr: Quang Lopez DO Copies to: Quang Lopez DO~ Ordering Provider: Quang Lopez DO Date of Service: 08/31/24 XR/XR shoulder RT min 2V*: M25.511 - Pain in right shoulder RIGHT SHOULDER - - 3 views CLINICAL HISTORY: Pain in the right shoulder going down arm over 4 weeks. COMPARISON: None FINDINGS: Mild degenerative changes of the AC and glenohumeral joints without acute bony process. Bones are grossly demineralized. XR/XR shoulder RT min 2V* IMPRESSION: MILD DEGENERATIVE CHANGES OF THE RIGHT SHOULDER WITHOUT ACUTE BONY PROCESS. Impression dictated by: Ashvin Garza Jr., D.O.08/31/2024 3:37 PM Dictation Location: RADIO-PC-22 Transcribed By: BHAVANA 08/31/241536 Dictated By: Ashvin Garza Jr, DO 08/31/241535 Signed By: 08/31/24 153Nati Aultman HospitalXR shoulder RT min 2V*on 39-15-4203YI shoulder RT min 2V*[facility] [place] [address] XRay Report Signed Patient: Kavya Cade MR#: [id number] : 1950 Acct:[id number] Age/Sex: 74 / F ADM Date: 08/31/24 Loc: XD Room: Type: [facility] Attending Dr: Quang Lopez DO Copies to: Quang Lopez DO Ordering Provider: Quang Lopez DO Date of Service: 08/31/24 XR/XR shoulder RT min 2V*: M25.511 - Pain in right shoulder RIGHT SHOULDER - - 3 views CLINICAL HISTORY: Pain in the right shoulder going down arm over 4 weeks. COMPARISON: None FINDINGS: Mild degenerative changes of the AC and glenohumeral joints without acute bony process. Bones are grossly demineralized. XR/XR shoulder RT min 2V* IMPRESSION: MILD DEGENERATIVE CHANGES OF THE RIGHT SHOULDER WITHOUT ACUTE BONY PROCESS. Impression dictated by: Ashvin Garza Jr., D.O.08/31/2024 3:37 PM Dictation Location: RADIO-PC-22 Transcribed By: BHAVANA 08/31/241536 Dictated By: Ashvin Garza Jr, DO 08/31/241535 Signed By: 08/31/24 [facility]chezNatiH[facility] Physician GroupAlanine aminotransferase [Enzymatic activity/volume] in Serum or PlasmaOrdered By: Quang Lopez on 11-57-1914IGY [Catalytic activity/Vol]36 U/LNormal7-52Aultman HospitalComment on above:Performed By: #### CMP, CBC, TSH3, LIPID, [id number] #### [facility] [address] [place] [address] USAALT [Catalytic activity/Vol]Alanine aminotransferase [Enzymatic activity/volume] in Serum or PlasmaAultman HospitalAlbumin [Mass/volume] in Serum or Plasma by Bromocresol green (BCG) dye binding methoOrdered By: Quang Lopez on 16-16-5088Vfxtjrm BCG dye [Mass/Vol]3.6 g/dL3.5-5.7FUC Medical CenterAlbumin BCG dye [Mass/Vol]Albumin [Mass/volume] in Serum or Plasma by Bromocresol green (BCG) dye binding metho 3.5-5.7FUC Medical CenterAlkaline phosphatase [Enzymatic activity/volume] in Serum or PlasmaOrdered By: Quang Lopez on 00-70-0701EEX [Catalytic activity/Vol]81 U/SRzxyeu10-166Fvmtpkutm[address] Comment on above:Performed By: #### CMP, CBC, TSH3, LIPID, [id number] #### [facility] [address] [place] [address] USAALP [Catalytic activity/Vol]Alkaline phosphatase [Enzymatic activity/volume] in Serum or Ctahiq40-160Mcllmohog93 [address] StreetAspartate aminotransferase [Enzymatic activity/volume] in Serum or Plasma Ordered By: Quang Lopez on 42-27-5805WXP [Catalytic activity/Vol]43 U/GYdnt63-01 [facility]ultman HospitalComment on above:Performed By: #### CMP, CBC, TSH3, LIPID, [id number] #### [facility] [address] [place] [address] USAAST [Catalytic activity/Vol]Aspartate aminotransferase [Enzymatic activity/volume] in Serum or BrupfeNkeu80-14GcjgbokttAultman HospitalAutomated basophil %Ordered By: Quang Lopez on 08-24-2024 Basophils/100 WBC (Bld)0.8 %Normal.Aultman HospitalComment on above:Performed By: #### CMP, CBC, TSH3, LIPID, [id number] #### [place] [address] USAAutomated basophil countOrdered By: Quang Lopez on 10-61-9554Mxhitfzlt (Bld) [#/Vol]0.0 10*3/uLNormal0.0-0.2FUC Medical CenterComment on above:Result Comment: PERFORMED BY: [place] [address] PATHOLOGIST WORD PROCESSING SPECIALIST AYAAN DAUGHERTY M.D.Performed By: #### CMP, CBC, TSH3, LIPID, [id number] #### [place] [address] USAAutomated blood monocyte countOrdered By: Quang Lopez on 48-90-0195Kvwfolmhe (Bld) [#/Vol]0.7 10*3/uLNormal0.0-0.8Aultman HospitalComment on above:Performed By: #### CMP, CBC, TSH3, LIPID, [id number] #### [place] [address] USAAutomated eosinophil %Ordered By: Quang Lopez on 08-24-2024 Eosinophils/100 WBC (Bld)8.6 %Normal.Aultman HospitalComment on above:Performed By: #### CMP, CBC, TSH3, LIPID, [id number] #### [place] [address] USAAutomated eosinophil countOrdered By: Quang Lopez on 02-76-6751Oubosbmdhcm (Bld) [#/Vol]0.4 10*3/uLNormal0.0-0.45Aultman HospitalComment on above:Performed By: #### CMP, CBC, TSH3, LIPID, [id number] #### [place] [address] USAAutomated monocyte %Ordered By: Quang Lopez on 08-24-2024 Monocytes/100 WBC (Bld)14.4 %Normal.Aultman HospitalComment on above:Performed By: #### CMP, CBC, TSH3, LIPID, [id number] #### [facility] [address] [place] [address] USAAutomated neutrophil %Ordered By: Quang Lopez on 08-24-2024 Neutrophils/100 WBC (Bld)46.4 %Normal.Aultman HospitalComment on above:Performed By: #### CMP, CBC, TSH3, LIPID, [id number] #### [facility] [address] [place] [address] USABasophils Auto (Bld) [#/Vol]Ordered By: Quang Lopez on 93-37-9792Zppmcxjar (Bld) [#/Vol]Automated basophil count0.0-0.2FUC Medical CenterBasophils/100 WBC Auto (Bld)Ordered By: Quang Lopez on 66-03-8766Osvbgrbdk/100 WBC (Bld)Automated basophil %.Aultman HospitalBilirubin.total [Mass/volume] in Serum or PlasmaOrdered By: Quang Lopez on 55-38-3245Msphiqxvb [Mass/Vol]0.5 mg/dLNormal0.3-1.0[facility]ultman HospitalComment on above:Performed By: #### CMP, CBC, TSH3, LIPID, [id number] #### [facility] [address] [place] [address] USABilirubin [Mass/Vol]Bilirubin.total [Mass/volume] in Serum or Plasma0.3-1.0Aultman HospitalCalcium [Mass/volume] in Serum or PlasmaOrdered By: Quang Lopez on 37-25-6723Itqbwrd [Mass/Vol]9.7 mg/dLNormal 8.6-10.3FUC Medical CenterComment on above:Performed By: #### CMP, CBC, TSH3, LIPID, [id number] #### [facility] [address] [place] [address] USACalcium [Mass/Vol]Calcium [Mass/volume] in Serum or Plasma 8.6-10.3FUC Medical CenterCarbon dioxide, total [Moles/volume] in Serum or PlasmaOrdered By: Quang Lopez on 80-57-3397BC4 [Moles/Vol]32.7 mmol/L High21.0-31.0Aultman HospitalComment on above:Performed By: #### CMP, CBC, TSH3, LIPID, [id number] #### [facility] [address] [place] [address] USACO2 [Moles/Vol]Carbon dioxide, total [Moles/volume] in Serum or FtfgrxDmxk33.0-31.0Aultman HospitalChloride [Moles/volume] in Serum or PlasmaOrdered By: Qunag Lopez on 61-06-1975Oigrxncb [Moles/Vol]105 mmol/SPmxcsv45-581Nc[address]qd[address] [place], [place] [address]Comment on above:Performed By: #### CMP, CBC, TSH3, LIPID, [id number] #### [facility] [address] [place] [address] USAChloride [Moles/Vol]Chloride [Moles/volume] in Serum or Cppzmk16-945ZqnvynizwAultman HospitalCholesterol [Mass/volume] in Serum or PlasmaOrdered By: Quang Lopez on 40-70-3891Eigegcqomng [Mass/Vol]164 mg/dL Rtmfan166-042BqnkibdqzAultman HospitalComment on above:Chol less than 200 mg/dl low riskChol 201-239 mg/dl borderline riskChol 240 mg/dl and greater high riskResult Comment: Chol less than 200 mg/dl low risk Chol 201-239 mg/dl borderline risk Chol 240 mg/dl and greater high riskPerformed By: #### CMP, CBC, TSH3, LIPID, [id number] #### [facility] [address] [place] [address] USACholesterol [Mass/Vol]Cholesterol [Mass/volume] in Serum or Csjezb718-120XjvvdniqtAultman HospitalComment on above:Chol less than 200 mg/dl low riskChol 201-239 mg/dl borderline riskChol 240 mg/dl and greater high riskCholesterol in HDL [Mass/volume] in Serum or PlasmaOrdered By: Quang Lopez on 87-14-0512Dthkpdhynei in HDL [Mass/Vol]Serum or plasma high density lipoprotein (HDL) cholesterol zlabpynleqy02-59VopepivvpAultman Hospital Comment on above:HDL CHOL ATP-III CLASSIFICATION Cardiovascular RiskHDL > or equal to 60 mg/dL LOWHDL < 40 mg/dL HIGHCholesterol in LDL Calc [Mass/Vol] Ordered By: Quang Lopez on 56-01-9774Apqpryukypb in LDL [Mass/Vol]70 mg/dL0 Aultman HospitalComment on above:LDL ATP III CLASSIFICATIONLDL less than 100 mg/dL OptimalLDL 100-129 mg/dL Near or above noqgrauTGK754-414 mg/dL Borderline highLDL 160-189 mg/dL HighLDL greater than 189 mg/dL Very high Cholesterol in LDL [Mass/Vol]Cholesterol in LDL [Mass/volume] in Serum or Plasma by calculationAultman HospitalComment on above:LDL ATP III CLASSIFICATIONLDL less than 100 mg/dL OptimalLDL 100-129 mg/dL Near or above yrygdojYPF114-247 mg/dL Borderline highLDL 160-189 mg/dL HighLDL greater than 189 mg/dL Very highCholesterol in VLDL Calc [Mass/Vol]Ordered By: Quang Lopez on 50-05-5972Qdjdxqcystu in VLDL [Mass/Vol]22 mg/dLAultman HospitalCholesterol in VLDL [Mass/Vol]Cholesterol in VLDL [Mass/volume] in Serum or Plasma by calculationAultman HospitalComplete Blood Count Auto Diffon 51-07-7547Wawp Corpuscular HGB Conc33.5 g/rSTbrtug62.0-35.0[facility] Physician GroupComment on above:Performed By: #### CMP, CBC, TSH3, LIPID, [id number] #### [facility] [address] [place] [address] USANRBC%0.2 /100{WBC}Normal0-0.5[facility] Comment on above:Performed By: #### CMP, CBC, TSH3, LIPID, [id number] #### [facility] [address] [place] [address] USAComprehensive Metabolic Panelon 01-16-5938Xbwhtmq [Mass/Vol]3.6 g/dLNormal3.5-5.7[facility] Physician GroupComment on above: Performed By: #### CMP, CBC, TSH3, LIPID, [id number] #### [facility] [address] [place] [address] USAGFR/1.73 sq M.predicted MDRD (S/P/Bld) [Vol rate/Area] mL/min/{1.73_m2}NormalThe [facility]he Memorial Hospital Physician GroupComment on above:Performed By: #### CMP, CBC, TSH3, LIPID, [id number] #### [facility] [address] [place] [address] USACreatinine [Mass/volume] in Serum or PlasmaOrdered By: Quang Lopez on 30-85-9671Bdgfgapmyi [Mass/Vol]0.63 mg/dLNormal0.60-1.20Aultman HospitalComment on above:Performed By: #### CMP, CBC, TSH3, LIPID, [id number] #### [facility] [address] [place] [id number] USACreatinine [Mass/Vol]Creatinine [Mass/volume] in Serum or Plasma0.60-1.20Aultman HospitalEosinophils Auto (Bld) [#/Vol] Ordered By: Quang Lopez on 70-84-5498Chwzhrpdxos (Bld) [#/Vol]Automated eosinophil count0.0-0.45Aultman HospitalEosinophils/100 WBC Auto (Bld)Ordered By: Quang Lopez on 82-73-1197Duiidquvelk/100 WBC (Bld)Automated eosinophil %.Aultman HospitalErythrocyte distribution width Auto (RBC) [Ratio]Ordered By: Quang Lopez on 64-81-9800Firzlufbqiv distribution width (RBC) [Ratio]Erythrocyte distribution width [Ratio] by Automated count 11.9-15.3FUC Medical CenterErythrocyte distribution width [Ratio] by Automated countOrdered By: Quang Lopez on 09-68-7726Qpnmwlaovyx distribution width (RBC) [Ratio]12.9 %Ylwjba18.9-15.3FUC Medical CenterComment on above:Performed By: #### CMP, CBC, TSH3, LIPID, [id number] #### [facility] [address] [place] [address] USAErythrocytes [#/volume] in Blood by Automated countOrdered By: Quang Lopez on 73-04-7879MZR (Bld) [#/Vol]4.31 10*6/uLNormal3.60-5.00 [facility]ultman HospitalComment on above:Performed By: #### CMP, CBC, TSH3, LIPID, [id number] #### [facility] [address] [place] [address] USAGlobulin Calc (S) [Mass/Vol]Ordered By: Quang Lopez on 46-90-6974Xtlsluuy (S) [Mass/Vol]Serum globulin measurement by calculation (mass/volume)Aultman HospitalGlucose [Mass/volume] in Serum or PlasmaOrdered By: Quang Lopez on 27-58-1143Ytejirh [Mass/Vol]98 mg/wUGsazwl19-520 [facility] HospitalComment on above:ADA recommended reference rangeRandom Glucose Reference Range is dependent on time and content of last meal. Glucose of more than 200 mg/dL in a nonstressed, ambulatory subject supports the diagnosisof Diabetes Mellitus.Result Comment: Random Glucose Reference Range is dependent on time and content of last meal. Glucose of more than 200 mg/dL in a nonstressed, ambulatory subject supports the diagnosis of Diabetes Mellitus. ADA recommended reference rangePerformed By: #### CMP, CBC, TSH3, LIPID, [id number] #### [facility] [address] [place] [address] USAGlucose [Mass/Vol]Glucose [Mass/volume] in Serum or Plasma 70-100Aultman HospitalComment on above:ADA recommended reference rangeRandom Glucose Reference Range is dependent on time and content of last meal. Glucose of more than 200 mg/dL in a nonstressed, ambulatory subject supports the diagnosisof Diabetes Mellitus.Hematocrit Auto (Bld) [Volume fraction]Ordered By: Quang Lopez on 75-73-4337Ugncsblcpt (Bld) [Volume fraction] Hematocrit [Volume Fraction] of Blood by Automated count34.0-46.4FUC Medical CenterHematocrit [Volume Fraction] of Blood by Automated count Ordered By: Quang Lopez on 60-37-3199Vkribpzews (Bld) [Volume fraction]41.1 % Wzsdyt63.0-46.4FUC Medical CenterComment on above:Performed By: #### CMP, CBC, TSH3, LIPID, [id number] #### [facility] [address] [place] [address] USAHemoglobin [Mass/volume] in BloodOrdered By: Quang Lopez on 72-01-0765Ulxwqsuwvj (Bld) [Mass/Vol]13.8 g/aJLaqgbk82.8-15.4FUC Medical CenterComment on above:Performed By: #### CMP, CBC, TSH3, LIPID, [id number] #### [facility] [address] [place] [address] USAHemoglobin (Bld) [Mass/Vol]Hemoglobin [Mass/volume] in Blood11.8-15.4FUC Medical CenterLeukocytes [#/volume] corrected for nucleated erythrocytes in Blood by Automated counOrdered By: Quang Lopez on 91-84-7630JCQ corrected for nucl RBC Auto (Bld) [#/Vol]4.9 10*3/uL3.8-11.6 [facility] HospitalWBC corrected for nucl RBC Auto (Bld) [#/Vol] Leukocytes [#/volume] corrected for nucleated erythrocytes in Blood by Automated coun3.8-11.6F[facility] Medical CenterLeukocytes [#/volume] in Blood by Automated countOrdered By: Quang Lopez on 45-54-2739TDA (Bld) [#/Vol]4.9 10*3/uL Normal3.8-11.6FUC Medical CenterComment on above:Performed By: #### CMP, CBC, TSH3, LIPID, [id number] #### [facility] [address] [place] [address] USALipid Panelon 02-60-2947KKD Cholesterol,Wumnfnoumf41 mg/dL Normal0-100[facility] Physician GroupComment on above:Result Comment: LDL ATP III CLASSIFICATION LDL less than 100 mg/dL Optimal LDL 100-129 mg/dL Near or above optimal LDL 130-159 mg/dL Borderline high LDL 160-189 mg/dL High LDL greater than 189 mg/dL Very highPerformed By: #### CMP, CBC, TSH3, LIPID, [id number] #### [facility] [address] [place] [id number] USATriglyceride w/Duumjs560 mg/dLNormal0-149[facility] Physician GroupComment on above:Result Comment: TRIG ATP III CLASSIFICATION TRIG less than 150 mg/dL Normal TRIG 150-199 mg/dL Borderline high TRIG 200-500 mg/dL High TRIG greater than 500 mg/dL Very high Standard traceable to the Center for Disease Conrtrol and Prevention (CDC) test method.Performed By: #### CMP, CBC, TSH3, LIPID, [id number] #### [facility] [address] [place] [id number] USAVLDL GZEYKWFEUXU08 mg/dLNormalThe Ashe Memorial Hospital Physician GroupComment on above:Performed By: #### CMP, CBC, TSH3, LIPID, [id number] #### [facility] [address] [place] [id number] USALymphocytes Auto (Bld) [#/Vol]Ordered By: Quang Lopez on 90-78-5583Qldmdpqybvw (Bld) [#/Vol]Lymphocytes [#/volume] in Blood by Automated count1.00-4.8[facility]ultman HospitalLymphocytes [#/volume] in Blood by Automated countOrdered By: Quang Lopez on 30-29-5183Sdbqoozsdjd (Bld) [#/Vol]1.5 10*3/uLNormal1.00-4.8[facility]ultman HospitalComment on above: Performed By: #### CMP, CBC, TSH3, LIPID, [id number] #### [facility] [address] [place] [id number] USALymphocytes/100 WBC Auto (Bld)Ordered By: Quang Lopez on 00-67-5745Bsqqopdttkk/100 WBC (Bld)Lymphocytes/100 leukocytes in Blood by Automated count.[facility]man HospitalLymphocytes/100 leukocytes in Blood by Automated countOrdered By: Quang Lopez on 64-66-3685Najuvmgbxzh/100 WBC (Bld)29.8 %Normal.[facility]ultman HospitalComment on above:Performed By: #### CMP, CBC, TSH3, LIPID, [id number] #### [facility] [address] [place] [address] Auto (RBC) [Entitic mass]Ordered By: Quang Lopez on 08-51-3588IFB (RBC) [Entitic mass]MCH [Entitic mass] by Automated count24.7-34.3 [facility] [Entitic mass] by Automated countOrdered By: Quang Lopez on 52-04-3786NIE (RBC) [Entitic mass]31.9 bqZdydvq63.7-34.3 [facility] HospitalComment on above:Performed By: #### CMP, CBC, TSH3, LIPID, [id number] #### [address] Auto (RBC) [Mass/Vol]Ordered By: Quagn Lopez on 46-42-4556ICHX (RBC) [Mass/Vol]33.5 g/dL32.0-35.0[facility] (RBC) [Mass/Vol]MCHC [Mass/volume] by Automated count32.0-35.0 [facility] Auto (RBC) [Entitic vol]Ordered By: Quang Lopez on 06-54-3355GIV (RBC) [Entitic vol]MCV [Entitic volume] by Automated count 80-100[facility] HospitalV [Entitic volume] by Automated count Ordered By: Quang Lopez on 28-52-5825NMH (RBC) [Entitic vol]95.4 uYXteajc70-728 [facility] HospitalComment on above:Performed By: #### CMP, CBC, TSH3, LIPID, [id number] #### [facility] [address] [place] [address] USAMonocytes Auto (Bld) [#/Vol]Ordered By: Quang Lopez on 47-28-2138Kiicjotoq (Bld) [#/Vol]Automated blood monocyte count0.0-0.8A[facility]man HospitalMonocytes/100 WBC Auto (Bld)Ordered By: Quang Lopez on 10-27-2486Wbbxkbqfu/100 WBC (Bld)Automated monocyte %.[facility]ultman HospitalNeutrophils Auto (Bld) [#/Vol]Ordered By: Quang Lopez on 08-24-2024 Neutrophils (Bld) [#/Vol]Neutrophils [#/volume] in Blood by Automated count 1.8-7.7FUC Medical CenterNeutrophils [#/volume] in Blood by Automated countOrdered By: Quang Lopez on 52-04-2258Ammkemlekvz (Bld) [#/Vol]2.3 10*3/uLNormal1.8-7.7FUC Medical CenterComment on above:Performed By: #### CMP, CBC, TSH3, LIPID, [id number] #### [place] [address] USANeutrophils/100 WBC Auto (Bld)Ordered By: Quang Lopez on 96-06-2872Zqmuobaweax/100 WBC (Bld)Automated neutrophil %.[facility]man HospitalNo Panel InformationOrdered By: Quang Lopez on 26-98-7193Xtzqousvu GFR (CKD-EPI)> 60.0 mL/MinAultman HospitalPharmacy Creatinine Clearance (ChemN/AFUC Medical CenterNucleated erythrocytes [Presence] in Blood by Automated countOrdered By: Quang Lopez on 08-24-2024 Nucleated RBC Auto Ql (Bld)0.2 /100{WBC}0-0.5[facility] Nucleated RBC Auto Ql (Bld)Nucleated erythrocytes [Presence] in Blood by Automated count0-0.5FUC Medical CenterPlatelet mean volume Auto (Bld) [Entitic vol]Ordered By: Quang Lopez on 88-59-5843Kzautmer mean volume (Bld) [Entitic vol]Platelet mean volume [Entitic volume] in Blood by Automated count6.3-10.7FUC Medical CenterPlatelet mean volume [Entitic volume] in Blood by Automated countOrdered By: Quang Lopez on 25-99-4653Fookikls mean volume (Bld) [Entitic vol]8.5 fLNormal6.3-10.7FUC Medical CenterComment on above:Performed By: #### CMP, CBC, TSH3, LIPID, [id number] #### [facility] [address] [place] [address] USAPlatelets Auto (Bld) [#/Vol]Ordered By: Quang Lopez on 02-26-4692Rtqlweqrn (Bld) [#/Vol]Platelets [#/volume] in Blood by Automated xkujv368-251VyqtekzenAultman HospitalPlatelets [#/volume] in Blood by Automated countOrdered By: Quang Lopez on 77-71-6103Xmlvwnqfj (Bld) [#/Vol]237 10*3/sIDeimst969-733OewwnltxuAultman HospitalComment on above:Performed By: #### CMP, CBC, TSH3, LIPID, [id number] #### [place] [address] USAPotassium [Moles/volume] in Serum or PlasmaOrdered By: Quang Lopez on 08-31-1141Diwtphbuf [Moles/Vol]4.5 mmol/LNormal3.5-5.1FUC Medical CenterComment on above:Performed By: #### CMP, CBC, TSH3, LIPID, [id number] #### [place] [id number] USAPotassium [Moles/Vol]Potassium [Moles/volume] in Serum or Plasma3.5-5.1FUC Medical CenterProtein [Mass/volume] in Serum or PlasmaOrdered By: Quang Lopez on 75-53-5786Ualgwcm [Mass/Vol]6.0 g/dLLow6.4-8.9 [facility] HospitalComment on above:Performed By: #### CMP, CBC, TSH3, LIPID, [id number] #### [place] [id number] USAProtein [Mass/Vol]Protein [Mass/volume] in Serum or Plasma Low6.4-8.9Aultman HospitalRBC Auto (Bld) [#/Vol]Ordered By: Quang oLpez on 61-06-5758VLW (Bld) [#/Vol]Erythrocytes [#/volume] in Blood by Automated count3.60-5.00[facility]ermont Hospitalerum globulin measurement by calculation (mass/volume)Ordered By: Quang Lopez on 08-24-2024 Globulin (S) [Mass/Vol]2.4 g/dLNormChildren's Hospital of ColumbusComment on above:Performed By: #### CMP, CBC, TSH3, LIPID, [id number] #### [facility] [address] [place] [id number] USASerum or plasma albumin/globulin mass ratioOrdered By: Quang Lopez on 84-27-9070Lvgwzuj/Globulin [Mass ratio]1.5 {ratio}NormalAultman HospitalComment on above:Performed By: #### CMP, CBC, TSH3, LIPID, [id number] #### [facility] [address] [place] [address] USAAlbumin/Globulin [Mass ratio]Serum or plasma albumin/globulin mass ratioMercy Health Clermont Hospitalerum or plasma anion gap determinationOrdered By: Quang Lopez on 90-00-3099Nxgih gap [Moles/Vol] 9.8 mmol/LNormal6.0-15.0A[facility]man HospitalComment on above: Performed By: #### CMP, CBC, TSH3, LIPID, [id number] #### [facility] [address] [place] [id number] USAAnion gap [Moles/Vol]Serum or plasma anion gap determination6.0-15.0[facility] Clerm[facility] Hospitalerum or plasma high density lipoprotein (HDL) cholesterol measurementOrdered By: Quang Lopez on 68-54-9259Xlzcwuhpxpx in HDL [Mass/Vol]72 mg/aPSowgrn22-33VpaqxpsbkAultman HospitalComment on above:HDL CHOL ATP-III CLASSIFICATION Cardiovascular RiskHDL > or equal to 60 mg/dL LOWHDL < 40 mg/dL HIGHResult Comment: HDL CHOL ATP-III CLASSIFICATION Cardiovascular Risk HDL > or equal to 60 mg/dL LOW HDL < 40 mg/dL HIGHPerformed By: #### CMP, CBC, TSH3, LIPID, [id number] #### [facility] [address] [place] [address] USASerum or plasma total cholesterol/high density lipoprotein (HDL) cholesterol mass ratOrdered By: Quang Lopez on 08-24-2024 Cholesterol.total/Cholesterol in HDL [Mass ratio]2.3 {ratio}Normal<5.0Aultman HospitalComment on above:Performed By: #### CMP, CBC, TSH3, LIPID, [id number] #### [facility] [address] [place] [address] USACholesterol.total/Cholesterol in HDL [Mass ratio]Serum or plasma total cholesterol/high density lipoprotein (HDL) cholesterol mass rat<5.0 [facility] Hospitalodium [Moles/volume] in Serum or PlasmaOrdered By: Quang Lopez on 70-21-0063Jbvmnd [Moles/Vol]143 mmol/OEuzzqt979-742DnajlcdxhAultman HospitalComment on above:Performed By: #### CMP, CBC, TSH3, LIPID, [id number] #### [facility] [address] [place] [address] USASodium [Moles/Vol]Sodium [Moles/volume] in Serum or Plasma 136-145Aultman HospitalThyrotropin [Units/volume] in Serum or PlasmaOrdered By: Quang Lopez on 93-24-4132WYO Qn3.27 m[IU]/LNormal0.45-5.33 [facility] HospitalComment on above:Performed By: #### CMP, CBC, TSH3, LIPID, [id number] ####[facility] [address] [place] [address] USATSH QnThyrotropin [Units/volume] in Serum or Plasma 0.45-5.33Aultman HospitalTriglyceride [Mass/volume] in Serum or PlasmaOrdered By: Quang Lopez on 77-60-6951Cncvksllsctj [Mass/Vol]112 mg/dL0-149 [facility]man HospitalComment on above:TRIG ATP III CLASSIFICATIONTRIG less than 150 mg/dL NormalTRIG 150-199 mg/dL Borderline highTRIG 200-500 mg/dL High TRIG greater than 500 mg/dL Very highStandard traceable to the Center for Disease Conrtrol and Prevention (CDC) test method. Triglyceride [Mass/Vol]Triglyceride [Mass/volume] in Serum or Plasma0-149 Aultman HospitalComment on above:TRIG ATP III CLASSIFICATIONTRIG less than 150 mg/dL NormalTRIG 150-199 mg/dL Borderline highTRIG 200-500 mg/dL High TRIG greater than 500 mg/dL Very highStandard traceable to the Center for Disease Conrtrol and Prevention (CDC) test method. Urea nitrogen [Mass/volume] in Serum or PlasmaOrdered By: Quang Lopez on 40-55-3560Dxgp nitrogen [Mass/Vol]24 mg/dLNormal05-18Aultman HospitalComment on above:Performed By: #### CMP, CBC, TSH3, LIPID, [id number] #### [facility] [address] [place] [address] USAUrea nitrogen [Mass/Vol]Urea nitrogen [Mass/volume] in Serum or Plasma05-18A[facility]man HospitalVitamin D 25 Hydroxy Totalon 89-47-4266Mcspktd D 25 Hydroxy Total63.3 ng/nGNndetf37-668Dji [facility] Physician GroupComment on above:Result Comment: VITAMIN D STATUS 25(OH)VITAMIN D RANGE (ng/mL) Deficient <20 Insufficient 20 to <30 Sufficient 30 to 100 Reference: Berta MF,Zheng NC, Alberto MONTES, et al. Evaluation,treatment, and prevention of vitamin D deficiency; an Endocrine Society clinical practice guideline. JCEM. 2010; 96(7):1911-30. PERFORMED BY: [facility] [address] [place] [address] PATHOLOGIST WORD PROCESSING SPECIALIST AYAAN DAUGHERTY M.D.Performed By: #### CMP, CBC, TSH3, LIPID, [id number] ####[facility] [address] [place] [address] USAVitamin D+Metabolites [Mass/volume] in Serum or PlasmaOrdered By: Quang Lopez on 66-48-8348Bjhmaab D+Metabolites [Mass/Vol]63.3 ng/tK20-586AydpknkzxAultman HospitalComment on above:VITAMIN D STATUS 25(OH)VITAMIN D RANGE (ng/mL) Deficient <20 Insufficient 20 to <62Ujltjptyvy53 to 100Reference: Zheng Garzon, Alberto MONTES, et al. Evaluation,treatment, and prevention of vitamin D deficiency; an Endocrine Society clinical practice guideline. JCEM. 2010; 96(7):1911-30.Vitamin D+Metabolites [Mass/Vol]Vitamin D+Metabolites [Mass/volume] in Serum or Gxvgxb49-545ZbbxhzjtqAultman HospitalComment on above:VITAMIN D STATUS 25(OH)VITAMIN D RANGE (ng/mL) Deficient <20 Insufficient 20 to <05Phlrykysgb53 to 100Reference: Zheng Garzon, Alberto MONTES, et al. Evaluation,treatment, and prevention of vitamin D deficiency; an Endocrine Society clinical practice guideline. JCEM. 2010; 96 (7):1911-30.WBC Auto (Bld) [#/Vol]Ordered By: Quang Lopez on 49-42-4410SJK (Bld) [#/Vol]Leukocytes [#/volume] in Blood by Automated count3.8-11.[address] [place], [place] [address]MM screening mammo BI w/CADon 97-24-6565LL screening mammo BI w/[facility] [place] [address] Mammography Report Signed Patient: Kavya Cade MR#: [id number] : 1950 Acct:[id number] Age/Sex: 74 / F ADM Date: 08/14/24 Loc: [place] Room: Type: [facility] Attending Dr: Referral Self Copies to: Quang Lopez DO SELF,REFERRAL Ordering Provider: SELF,REFERRAL Date of Service: 08/14/24 MM/MM screening mammo BI w/CAD: SCREENING BILATERAL Screening Full Field digital mammogram with 3-D imaging. Full field digital CC and MLO imaging performed. CAD utilized. COMPARISON: 08/11/2023 HISTORY: Annual screening BREAST COMPOSITION: Scattered fibroglandular densities of the breast parenchyma identified BREAST CALCIFICATIONS: Benign calcifications present. VASCULAR CALCIFICATIONS: None ARCHITECTURAL DISTORTION: None BREAST NODULE: None AXILLARY LYMPH NODES: Normal POSTSURGICAL CHANGES: None MM/MM screening mammo BI w/CAD IMPRESSION: No mammographic evidence of malignancy. Routine follow-up recommended in one year. RESULT CODE: 2 Benign Findings(s) DENSITY CODE: 2 (approximately 25-50% glandular) FOLLOW UP: 1YR THE FALSE-NEGATIVE RATE OF MAMMOGRAPHY IS APPROXIMATELY 10%. IMAGING OF A PALPABLE ABNORMALITY MUST BE BASED ON CLINICAL GROUNDS. PATIENT WAS ENTERED INTO A REMINDER SYSTEM WITH A TARGET DUE DATE FOR THE NEXT MAMMOGRAM. Impression dictated by: Roman Cadena M.D.08/14/2024 1:47 PM Dictation Location: [facility] Transcribed By: BHAVANA 08/14/24 1347 Dictated By: Roman Cadena DO 08/14/24 1346 Signed By: 08/14/24 1347[facility] Physician GroupAlanine aminotransferase [Enzymatic activity/volume] in Serum or PlasmaOrdered By: Quang Lopez on 92-61-9768FZN [Catalytic activity/Vol]38 U/L7-52A[facility] HospitalAlbumin [Mass/volume] in Serum or Plasma by Bromocresol green (BCG) dye binding methoOrdered By: Quang Lopez on 06-41-9543Grloupp BCG dye [Mass/Vol]3.7 g/dL3.5-5.7FUC Medical CenterAlkaline phosphatase [Enzymatic activity/volume] in Serum or PlasmaOrdered By: Quang Lopez on 14-38-2376INB [Catalytic activity/Vol]77 U/C05-055HnpfuxirjAultman HospitalAspartate aminotransferase [Enzymatic activity/volume] in Serum or PlasmaOrdered By: Quang Lopez on 85-52-1293GYC [Catalytic activity/Vol]40 U/S14-62BjnxlhsvnAultman HospitalBasophils Auto (Bld) [#/Vol]Ordered By: Quang Lopez on 05-27-2023 Basophils (Bld) [#/Vol]0.1 10*3/uL0.0-0.2[facility] Basophils/100 WBC Auto (Bld)Ordered By: Quang Lopez on 91-25-6343Lxwezcpjf/100 WBC (Bld)1.1 %.Aultman HospitalBilirubin.total [Mass/volume] in Serum or PlasmaOrdered By: Quang Lopez on 31-68-7457Khlebpfoj [Mass/Vol]0.6 mg/dL0.3-1.0[facility] HospitalCalcium [Mass/volume] in Serum or PlasmaOrdered By: Quang Lopez on 55-80-5180Fkhzqbf [Mass/Vol]9.3 mg/dL8.6-10.3 [facility] HospitalCarbon dioxide, total [Moles/volume] in Serum or PlasmaOrdered By: Quang Lopez on 86-60-5625LO4 [Moles/Vol]32.0 mmol/L21.0-31.0 [facility] HospitalChloride [Moles/volume] in Serum or Plasma Ordered By: Quang Lopez on 30-08-4041Wwejmfii [Moles/Vol]106 mmol/L98-107 [facility] HospitalCholesterol [Mass/volume] in Serum or Plasma Ordered By: Quang Lopez on 53-49-5347Bufzugunbwp [Mass/Vol]167 mg/mJ111-956 [facility]man HospitalComment on above:Chol less than 200 mg/dl low riskChol 201-239 mg/dl borderline riskChol 240 mg/dl and greater high risk Cholesterol in LDL Calc [Mass/Vol]Ordered By: Quang Lopez on 05-27-2023 Cholesterol in LDL [Mass/Vol]79 mg/dL0-100[facility] Comment on above:LDL ATP III CLASSIFICATIONLDL less than 100 mg/dL OptimalLDL 100-129 mg/dL Near or above lcpwgyqTBR018-694 mg/dL Borderline highLDL 160-189 mg/dL HighLDL greater than 189 mg/dL Very highCholesterol in VLDL Calc [Mass/Vol]Ordered By: Quang Lopez on 46-00-5387Azlcjcarjzi in VLDL [Mass/Vol]18 mg/dLAultman HospitalCreatinine [Mass/volume] in Serum or PlasmaOrdered By: Quang Lopez on 92-05-6401Dauvaexfin [Mass/Vol]0.65 mg/dL 0.60-1.20[facility] HospitalEosinophils Auto (Bld) [#/Vol]Ordered By: Quang Lopez on 90-43-2359Ezekemtymlb (Bld) [#/Vol]0.4 10*3/uL0.0-0.45 [facility] HospitalEosinophils/100 WBC Auto (Bld)Ordered By: Quang Lopez on 51-99-3844Stbdzctipcr/100 WBC (Bld)7.8 %.Aultman HospitalErythrocyte distribution width Auto (RBC) [Ratio]Ordered By: Quang Lopez on 07-17-1075Igfzjuxztrz distribution width (RBC) [Ratio]13.0 %11.9-15.3FUC Medical CenterFerritin [Mass/volume] in Serum or PlasmaOrdered By: Quang Lopez on 14-83-3281Dhohwdib [Mass/Vol]166.0 ng/mL11.0-306.8A[facility] HospitalGlobulin Calc (S) [Mass/Vol]Ordered By: Quang Lopez on 50-66-6020Lywawqmz (S) [Mass/Vol]2.7 g/dLAultman Hospital Glucose [Mass/volume] in Serum or PlasmaOrdered By: Quang Lopez on 05-27-2023 Glucose [Mass/Vol]90 mg/hH07-289KbzokbfuyAultman HospitalComment on above:ADA recommended reference rangeRandom Glucose Reference Range is dependent on time and content of last meal. Glucose of more than 200 mg/dL in a nonstressed, ambulatory subject supports the diagnosisof Diabetes Mellitus. Glucose mean value [Mass/volume] in Blood Estimated from glycated hemoglobin Ordered By: Quang Lopez on 36-90-3463Kjtsesi glucose Estimated from glycated hemoglobin (Bld) [Mass/Vol]114 mg/dLAultman HospitalHematocrit Auto (Bld) [Volume fraction]Ordered By: Quang Lopez on 66-16-4377Pyeynphoto (Bld) [Volume fraction]40.7 %34.0-46.4FUC Medical CenterHemoglobin A1c percentageOrdered By: Quang Lopez on 63-16-4519JvX6m (Bld) [Mass fraction]5.6 % 4.3-5.6FUC Medical CenterComment on above:Increased risk for diabetes: 5.7 - 6.4diabetes: >6.4glycemic control for adults with diabetes: &l t;7.0Hemoglobin [Mass/volume] in BloodOrdered By: Quang Lopez on 05-27-2023 Hemoglobin (Bld) [Mass/Vol]13.7 g/dL11.8-15.4[facility] Iron [Mass/volume] in Serum or PlasmaOrdered By: Quang Lopez on 94-21-2099Gndx [Mass/Vol]112 ug/vN25-764PrtwijnjwAultman HospitalIron binding capacity [Mass/volume] in Serum or PlasmaOrdered By: Quang Lopez on 26-74-4121Urek binding capacity [Mass/Vol]273 ug/xX634-005JgqfqkyagAultman HospitalIron saturation [Mass Fraction] in Serum or PlasmaOrdered By: Quang Lopez on 19-69-5776Ongk saturation [Mass fraction]41.0 %20-50A[facility] HospitalLeukocytes [#/volume] corrected for nucleated erythrocytes in Blood by Automated counOrdered By: Quang Lopez on 70-63-5433WZG corrected for nucl RBC Auto (Bld) [#/Vol]5.0 10*3/uL3.8-11.6[facility] Lymphocytes Auto (Bld) [#/Vol]Ordered By: Quang Lopez on 07-56-7894Kzjqftgfldm (Bld) [#/Vol]1.7 10*3/uL1.00-4.8[facility] HospitalLymphocytes/100 WBC Auto (Bld)Ordered By: Quang Lopez on 45-42-4331Qjgvsnboapq/100 WBC (Bld)34.4 %.[facility] Auto (RBC) [Entitic mass]Ordered By: Quang Lopez on 19-78-2782ZDM (RBC) [Entitic mass]31.5 pg24.7-34.3FAshtabula General Hospital Auto (RBC) [Mass/Vol]Ordered By: Quang Lopez on 79-25-2059RIJR (RBC) [Mass/Vol]33.6 g/dL32.0-35.0A[facility] HospitalMCV Auto (RBC) [Entitic vol]Ordered By: Quang Lopez on 57-93-8180IUF (RBC) [Entitic vol]93.9 pN23-140PhufboonuAultman HospitalMagnesium [Mass/volume] in Serum or PlasmaOrdered By: Quang Lopez on 12-99-9913Xskrfrdgo [Mass/Vol]2.0 mg/dL1.9-2.7F[facility] Medical CenterMonocytes Auto (Bld) [#/Vol]Ordered By: Quang Lopez on 47-94-3470Jswadiqtj (Bld) [#/Vol]0.8 10*3/uL 0.0-0.8[facility] HospitalMonocytes/100 WBC Auto (Bld)Ordered By: Quang Lopez on 32-45-1338Ctbimdsyw/100 WBC (Bld)16.0 %.[facility]man HospitalNeutrophils Auto (Bld) [#/Vol]Ordered By: Quang Lopez on 05-27-2023 Neutrophils (Bld) [#/Vol]2.0 10*3/uL1.8-7.7[facility] Neutrophils/100 WBC Auto (Bld)Ordered By: Quang Lopez on 05-27-2023 Neutrophils/100 WBC (Bld)40.7 %.[facility]man HospitalNo Panel InformationOrdered By: Quang Lopez on 51-64-6089Opvquqkbm GFR (CKD-EPI)> 60.0 mL/MinAultman HospitalPharmacy Creatinine Clearance (ChemN/A [facility] HospitalNucleated erythrocytes [Presence] in Blood by Automated countOrdered By: Quang Lopez on 34-33-9284Dcjhypfmz RBC Auto Ql (Bld) 0.1 /100{WBC}0-0.5FUC Medical CenterPhosphate [Mass/volume] in Serum or PlasmaOrdered By: Quang Lopez on 81-10-3899Qqvzonirz [Mass/Vol]3.5 mg/dL 3.7-7.2[facility] Medical CenterPlatelet mean volume Auto (Bld) [Entitic vol]Ordered By: Quang Lopez on 02-07-3566Gsxrnnzk mean volume (Bld) [Entitic vol]8.8 fL6.3-10.7FUC Medical CenterPlatelets Auto (Bld) [#/Vol] Ordered By: Quang Lopez on 56-51-4126Izkngzdcl (Bld) [#/Vol]238 10*3/gD355-313 [facility] HospitalPotassium [Moles/volume] in Serum or Plasma Ordered By: Quang Lopez on 63-77-7293Omxutvqgk [Moles/Vol]4.3 mmol/L3.5-5.1 [facility] HospitalProtein [Mass/volume] in Serum or PlasmaOrdered By: Quang Lopez on 40-13-0995Yewokyz [Mass/Vol]6.4 g/dL6.4-8.9A[facility] HospitalRBC Auto (Bld) [#/Vol]Ordered By: Quang Lopez on 64-25-6066KCL (Bld) [#/Vol]4.33 10*6/uL3.60-5.00[facility] Hospitalerum or plasma albumin/globulin mass ratioOrdered By: Quang Lopez on 05-27-2023 Albumin/Globulin [Mass ratio]1.4 {ratio}[facility] Hospitalerum or plasma anion gap determinationOrdered By: Quang Lopez on 35-12-3394Wvkoo gap [Moles/Vol]9.3 mmol/L6.0-15.0[facility] Hospitalerum or plasma high density lipoprotein (HDL) cholesterol measurementOrdered By: Quang Lopez on 39-84-6367Gehvhobowgx in HDL [Mass/Vol]69 mg/aI57-48ZvbbyoqrjAultman HospitalComment on above:HDL CHOL ATP-III CLASSIFICATION Cardiovascular RiskHDL > or equal to 60 mg/dL LOWHDL < 40 mg/dL HIGHSerum or plasma total cholesterol/high density lipoprotein (HDL) cholesterol mass ratOrdered By: Quang Lopez on 39-98-7964Xobyrjzwqwh.total/Cholesterol in HDL [Mass ratio]2.4 {ratio} <5.0[facility] Hospitalodium [Moles/volume] in Serum or Plasma Ordered By: Quang Lopez on 22-11-0265Elvrhe [Moles/Vol]143 mmol/M238-018DyhucspszAultman HospitalThyrotropin [Units/volume] in Serum or PlasmaOrdered By: Quang Lopez on 68-27-7961VGL Qn3.27 m[IU]/L0.45-5.33[facility]ultman HospitalTransferrin [Mass/volume] in Serum or PlasmaOrdered By: Quang Lopez on 21-30-5047Mjgwuxyicta [Mass/Vol]195 mg/hP592-943UyfkqjycfAultman HospitalTriglyceride [Mass/volume] in Serum or PlasmaOrdered By: Quang Lopez on 05-32-2803Tjrlwextswhk [Mass/Vol]94 mg/dL0-149[facility] Comment on above:TRIG ATP III CLASSIFICATIONTRIG less than 150 mg/dL NormalTRIG 150-199 mg/dL Borderline highTRIG 200-500 mg/dL High TRIG greater than 500 mg/dL Very highStandard traceable to the Center for Disease Conrtrol and Prevention (CDC) test method.Urea nitrogen [Mass/volume] in Serum or PlasmaOrdered By: Quang Lopez on 37-82-6008Mliv nitrogen [Mass/Vol]26 mg/dL7-25Aultman HospitalVitamin B12 ser/plasOrdered By: Quang Lopez on 32-32-1654Pqvmdgaiz (Vitamin B12) [Mass/Vol]307 pg/uT108-989OryyruvgpAultman HospitalVitamin D+Metabolites [Mass/volume] in Serum or PlasmaOrdered By: Quang Lopez on 01-33-6884Bxwdsri D+Metabolites [Mass/Vol]69.7 ng/eE90-328NwolykbzpAultman HospitalComment on above:VITAMIN D STATUS 25(OH)VITAMIN D RANGE (ng/mL) Deficient <20 Insufficient 20 to <57Wlixzbfxtx66 to 100Reference: Berta TRUONG,Zheng GREEN, Alberto MONTES, et al. Evaluation,treatment, and prevention of vitamin D deficiency; an Endocrine Society clinical practice guideline. JCEM. 2010; 96(7):1911-30.WBC Auto (Bld) [#/Vol]Ordered By: Quang Lopez on 85-76-1934TNG (Bld) [#/Vol]5.0 10*3/uL3.8-11.6[facility] CYTOLOGYon 01-45-4455JCSTUDHNKbpuhlmo originated from [facility] Centerpecimen #: [id number] Physician: Rhianna Hutchison M.D.SPECIMEN SUBMITTEDA: VAGINAL,DIAGNOSTIC, FLUID FINAL DIAGNOSISA. VAGINAL,DIAGNOSTIC, FLUIDUnsatisfactory for evaluation.Limited cellularity.COMMENTTechnical component, franchise development manager screening performed at [facility], [address] [place], [place] [address]This specimen has been analyzed by the ThinPrep Imaging System, anaTransform Software and Servicesed imaging and review system, which assists the laboratory inevaluating cells on ThinPrepPap tests. Following automated imaging,selected segovia from every slide are reviewed by a franchise development manager.CASSIE Rice (ASCP) (Electronic Signature) CLINICAL DATA HIST MALIGNANCY ENDOMETRIAL CANCER HPV Testing: Yes, Reflex HPVfor ASCUSDate of Last Menstrual Period:HysterectomySTAINSA: VAGINAL,DIAGNOSTIC, FLUID THIN PREP Leila Rao M.D., Laboratory DirectorPatient ID #: [id number] of Report: 07/16/2017Date of Procedure: 07/09/2017Date of Receipt: 07/12/2017Submitted by: Rhianna Hutchison M.D.Location: FONCDiagnostic interpretation performed at [facility], [address] [place] [address].The Pap Smear justin screening test for cervical cancer. False negativeresults occur with all screening tests, emphasizing the need forrescreening at recommended intervals, and clinical correlation.NormalJamaica Plain Va Medical CenterComment on above:Performed By: #### PFVAGD ####[address] [place] [address] Vital Signs Date TimeVital SignValuePerforming GuvwouyktXcphqtty57-12-7872 13:29-0400Body jufftv675.4 cmQuang Lopez DO Work Phone: [phone] [place], [place] 5853309-29-2025 13:29-0400 Body mass index (BMI) [Ratio]20.7 kg/j1BgpatQuang Wisdoms DO Work Phone: 1(155)[address] [place], [place] 6754809-29-2025 13:29-0400 Body ytidzd50.08 kgQuang Wisdoms DO Work Phone: 1(090)[address] [place], [place] 6754809-29-2025 13:29-0400 Diastolic blood jwaisggx16 mm[Hg]Quang Wisdoms DO Work Phone: 1(676)[address]09-29-2025 13:29-0400 Heart rate84 /minQuang Wisdoms DO Work Phone: 1(632)5-[address] [place], [place] 5853309-29-2025 13:29-0400 Respiratory rate16 /minQuang Wisdoms DO Work Phone: 1(810)[address]09-29-2025 13:29-0400 SaO2% (BldA) [Mass fraction]98 %Quang Lopez DO Work Phone: 1(495)1-[address] [place], [place] 5853309-29-2025 13:29-0400 Systolic blood mm[Hg]Quang Wisdoms DO Work Phone: 1(100)[address]09-12-2025 10:36-0400 Body .4 cmQuang Wisdoms DO Work Phone: 1(247)[address] [place], [place] 5853309-12-2025 10:36-0400 Body mass index (BMI) [Ratio]21.3 kg/x2Dgahy Kuns DO Work Phone: [facility]09-12-2025 10:36-0400 Body oporgt04.49 kgQuang Lopez DO Work Phone: [facility]09-12-2025 10:36-0400 Diastolic blood mm[Hg]Quang Lopez DO Work Phone: [facility]09-12-2025 10:36-0400 Heart rate75 /Bernie Lopez DO Work Phone: [facility]09-12-2025 10:36-0400 Respiratory rate18 /Bernie Lopez DO Work Phone: [facility]09-12-2025 10:36-0400 SaO2% (BldA) [Mass fraction]99 %Quang Lopez DO Work Phone: [facility]09-12-2025 10:36-0400 Systolic blood gmmiczmv693 mm[Hg]Quang Lopez DO Work Phone: [facility]06-10-2025 13:24-0400 Body .4 cmAultman Hospital06-10-2025 13:24-0400Body mass index (BMI) [Ratio]21.9 kg/r0RnmpxkkgkAultman Hospital06-10-2025 13:24-0400Body qbrhej39.8 kgAultman Hospital06-10-2025 13:24-0400Diastolic blood eavpbhzk56 mm[Hg][facility] 04-03-2025 13:24-0400Heart rate84 /[facility] 04-03-2025 13:24-0400Respiratory rate18 /[facility] 04-03-2025 13:24-5979GcV5% (BldA) [Mass fraction]98 %[facility]06-10-2025 13:24-0400Systolic blood jwqhfown289 mm[Hg][facility]11-06-2024 09:13-0500Body .4 cmDO Quang Lopez Work Phone: [facility]11-06-2024 09:13-0500 Body mass index (BMI) [Ratio]22.6 kg/m2DO Quang Lopez Work Phone: [facility]11-06-2024 09:13-0500 Body hnymab12.61 kgDO Quang Lopez Work Phone: [facility]11-06-2024 09:13-0500 Diastolic blood ibrymuiy25 mm[Hg]DO Quang Lopez Work Phone: [facility]11-06-2024 09:13-0500 Heart rate78 /Sofía Lopez Work Phone: [address] [place], [place] [address]11-06-2024 09:13-0500 Respiratory rate16 /Sofía Lopez Work Phone: [facility]11-06-2024 09:13-0500 SaO2% (BldA) [Mass fraction]99 %DO Quang Lopez Work Phone: [facility]11-06-2024 09:13-0500 Systolic blood geeesxgx222 mm[Hg]DO Quang Lopez Work Phone: [facility]04-24-2024 11:090400 Body qzdiyq323.4 cmAultman Hospital04-24-2024 11:09-0400Body mass index (BMI) [Ratio]22.4 kg/a0YknakncmyAultman Hospital04-24-2024 11:090400Body kgxxqy84.16 kgAultman Hospital04-24-2024 11:090400Diastolic blood gpznitrg93 mm[Hg][facility] 02-16-2024 11:090400Heart rate76 /[facility] 02-16-2024 11:09-0400Respiratory rate16 /[facility] 02-16-2024 11:09-7649FaT9% (BldA) [Mass fraction]99 %[facility]04-24-2024 11:09-0400Systolic blood eolglial848 mm[Hg][facility]10-16-2023 13:00-0400Body .4 cmQuang Lopez Other [employer] Other 10-16-2023 13:00-0400Body mass index (BMI) [Ratio] 22.46 kg/k1OqnadQuang Lopez Other [employer] Other 10-16-2023 13:00-0400Body .16 kgQuang Lopez Other [employer] Other 10-16-2023 13:00-0400Diastolic blood ywtnfhjn26 mm[Hg] Quang Lopez Other [employer] Other 10-16-2023 13:00-0400Respiratory rate16 /minQuang Lopez Other [employer] Other 10-16-2023 13:00-0119OvU6% (BldA) [Mass fraction]98 % Quang Lopez Other [employer] Other 10-16-2023 13:00-0400Systolic blood oonlvlun169 mm[Hg] Quang Lopez Other [employer] Other 02-01-2023 10:45-0500Body clvluf559.4 cmQuang Lopez Other [employer] Other 02-01-2023 10:45-0500Body mass index (BMI) [Ratio] 23.24 kg/a7FamrnQuang Lopez Other [employer] Other 02-01-2023 10:45-0500Body wuufeh85.98 kgNavijason Lopez Other [employer] Other 02-01-2023 10:45-0500Diastolic blood maxcefbt00 mm[Hg] Quang Jessica Other [employer] Other 02-01-2023 10:45-0500Respiratory rate16 /minQuang Lopez Other [employer] Other 02-01-2023 10:45-7128OzE9% (BldA) [Mass fraction]99 % Quang Lopez Other [employer] Other 02-01-2023 10:45-0500Systolic blood xhzowetq568 mm[Hg] Quang Lopez Other [employer] Other 07-27-2022 12:00-0400Body qsmich762.4 cmNavijason Jessica Other [employer] Other 07-27-2022 12:00-0400Body mass index (BMI) [Ratio] 23.24 kg/p4DfwqfQuang Lopez Other [employer] Other 07-27-2022 12:00-0400Body .98 kgNavijason Lopez Other [employer] Other 07-27-2022 12:00-0400Diastolic blood gziwuzxa36 mm[Hg] Quang Wisdoms Other [employer] Other 07-27-2022 12:00-0400Respiratory rate16 /minQuang Lopez Other [facility] Other 07-27-2022 12:00-4841BpI2% (BldA) [Mass fraction]98 % Quang Lopez Other [facility] [employer] Other 07-27-2022 12:00-0400Systolic blood mm[Hg] Quang Lopez [facility] Other Encounters Encounter DateEncounter TypeCare ProviderFacilityStart: 08-09-2025 End: 98-28-3225Rnfxtvg encounter procedureQuang Gibbs DO-[facility] Work Phone: Start: 08-09-2025 End: 53-19-5806jemxhyafjyHcgzm Kuns DO Work Phone: [facility] Work Phone: Start: 07-31-2025 End: 90-37-0379Mfujbwo encounter procedureQuang Gibbs DO-[facility] Work Phone: Start: 07-31-2025 End: 00-29-2707cwlnefhluvYffsh Kuns DO Work Phone: [facility] Work Phone: Start: 07-23-2025 End: 13-37-9211awggkdmnfvNfevb Kuns DO Work Phone: [facility] Work Phone: Start: 07-23-2025 End: 78-87-7073Savbtcq encounter procedureQuang Gibbs DO-[facility] [place] Work Phone: Start: 07-13-2025 End: 76-17-4582Hgsbfle encounter procedureBryan Kuns P DO-CT Scan [place] Work Phone: Start: 07-13-2025 End: 53-44-7029hpsjqrrmkzZnxjy Kuns DO Work Phone: [facility] Work Phone: Start: 07-09-2025 End: 51-32-1330Noslqjr encounter procedureQuang Gibbs DO-Lab [place] Work Phone: Start: 07-09-2025 End: 26-84-2793kwosedghgsMpvrj Kuns DO Work Phone: [facility] Work Phone: Start: 07-06-2025 End: 27-53-2644rcdhcyjgfsIjepv Kuns DO Work Phone: [facility] Work Phone: Start: 07-06-2025 End: 08-93-5452Hxefzyv encounter procedureQuang Gibbs DO-[facility] [place] Work Phone: Start: 04-03-2025 End: 89-68-3424utjpmrxrokLcahinvonCleveland Clinic [facility]view [facility] Work Phone: Start: 04-03-2025 End: 47-74-7467Bdvbmgy encounter procedureHemal Physician Group-[facility] [place] Work Phone: Start: 08-31-2024 End: 94-89-1030Shiomnc encounter procedureQuang Lopez DO Work Phone: [facility] [place] Work Phone: Start: 08-31-2024 End: 29-53-5325shypgjsyrkMqlle Kuns DO Work Phone: [facility] Work Phone: Start: 08-30-2024 End: 42-47-6075rmwporggucTB Bryan Kuns Work Phone: [facility] Work Phone: Start: 08-30-2024 End: 01-08-5882Szdmwgh encounter procedureDO Quang Lopez Work Phone: [facility] Work Phone: Start: 08-24-2024 End: 70-64-8213Gccrryz encounter procedureDO Quang Lopez Work Phone: [facility] [place] Work Phone: Start: 08-24-2024 End: 11-80-3486saepncrgkxWA Quang Lopez Work Phone: [facility] Work Phone: Start: 08-14-2024 End: 59-56-4044Muvtznv encounter procedureDO Quang Lopez Work Phone: [facility] Work Phone: Start: 08-14-2024 End: 95-51-6207ynpacrgtopVS Bryan Kuns Work Phone: [facility] Work Phone: Start: 02-16-2024 End: 91-31-9361gnutqidfnrLgjpiwobnCleveland Clinic [facility]view Hospital Work Phone: Start: 02-16-2024 End: 14-02-7297Gdiclat encounter procedureHemal Physician Group-[facility] Work Phone: Start: 77-10-6480Fuk-patient / Non-visitHemal Physician Group-[facility] Work Phone: Start: 08-11-2023 End: 85-47-6483lukxtlmpviQS Bryan Kuns Work Phone: [facility] Work Phone: Start: 08-11-2023 End: 86-40-0704Mmcukcz encounter procedureDO Quang Lopez Work Phone: [facility] Work Phone: Start: 08-09-2023 End: 54-63-2823hueihyvtpjYgtzv Kuns Other [employer] Other Start: 69-90-7454Wukaksh encounter procedureQuang Lopez [facility] [place]: 06-22-2023 End: 29-21-3776bpmfvbjzkfUeinr Kuns Other [employer] Other Start: 63-73-2854Xfklsfagq encounterQuang VanegasG [facility] [place]Start: 05-27-2023 End: 63-07-3556hbrhvcrbbbQL Quang Artisbenjamin Work Phone: [facility] Work Phone: Start: 05-27-2023 End: 13-37-4571Qhdxwiz encounter procedureDO Quang Lopez Work Phone: [facility]-Lab [place] Work Phone: Start: 11-25-2022 End: 13-07-2868ojhqoxskvuLohew Kuns Other [employer] Other Start: 90-88-5789Htjtym outpatient visit 25 minutes Quang VanegasG [facility] [place]Start: 05-20-2022 End: 15-96-1937yhyemhictiDvfcx Kuns Other [employer] Other Start: 54-99-6753Vsmtzfl encounter procedureQuang Lopez [facility] Medicine [place]Start: 07-09-2017 End: 52-69-4493HkaobsmlcgCNXIKBarney Children's Medical Center Procedures DateProcedureProcedure DetailPerforming ClinicianStart: 86-76-5013Pbycotld tomography of abdomen and pelvis with contrastQuang Lopez DO Work Phone: Start: 79-29-1603Ztqrq X-ray of right shoulderQuang Lopez DO Work Phone: Start: 39-51-1190Cftoqnxij mammography of bilateral breastPeterO Quang Lopez Work Phone: Start: 08-47-6356Ttzb energy X-ray absorptiometryDO Quang Lopez Work Phone: Start: 57-35-5906Gwszpgbtvjr of thoracic spineDO Quang Lopez Work Phone: Start: 76-52-0292I-ray of lumbar spine, six views including bending viewsDO Quang Lopez Work Phone: Start: 47-62-7468Yxdgomvpe mammography of bilateral breastPeterO Quang Lopez Work Phone: Screening for malignant neoplasm of breastQuang Lopez Other Screening for malignant neoplasm of colonQuang Lopez Other Plan of Treatment DateCare ActivityDetailAuthorComprehensive metabolic 1999 panel - Serum or [facility] CenterCom[facility] metabolic 1999 panel - Serum or [facility] CenterComprehensive metabolic 1999 panel - Serum or [facility] CenterCT Abdomen and Pelvis W contrast [facility] HospitalDXA Skeletal system.axial Views for bone densityAultman HospitalRF Gastrointestinal tract upper Single view W air contrast POAultman HospitalXR Shoulder - right ViewsKaiser Foundation Hospital Immunizations Immunization DateImmunizationNotesCare AzplrggkWezcjhqb90-34-7944bzstcddyr, high dose seasonal, preservative-freeDO Quang Lopez Work Phone: [facility]10-25-2022COVID-19 mRNA Bivalent Booster (Pfizer)DO Quang Lopez Work Phone: [facility]10-25-2022Fluzone QIV High-Dose 65YR+DO Quang Lopez Work Phone: [facility]06-09-2022COVID-19 Comirnaty (Pfizer) Tri-Sucrose 12+DO Quang Lopez Work Phone: [facility]11-09-2021COVID-19 Vaccine Pfizer - Documentation Purposes OnlyQuang Lopez Other [facility]09-28-2021Fluzone QIV High-Dose 65YR+DO Quang Lopez Work Phone: [facility]02-25-2021COVID-19 Vaccine Pfizer - Documentation Purposes OnlyQuang Lopez Other [facility]02-05-2021COVID-19 Vaccine Pfizer - Documentation Purposes OnlyQuang Lopez Other [facility]11-01-2020influenza, seasonal, injectableBryan Artiss Other [facility]10-02-2019Seasonal trivalent influenza vaccine, adjuvanted, preservative freeDO Quang Jessica Work Phone: [facility]10-02-2019influenza, seasonal, injectableBryan Kuns Other [facility]10-31-2018influenza, seasonal, injectableBryan Kuns Other [facility]10-31-2018influenza, high dose seasonal, preservative-freeDO Quang Artiss Work Phone: [facility]10-31-2018 pneumococcal polysaccharide vaccine, 23 valentNavijason Wisdoms Other [facility]10-14-2017influenza, seasonal, injectableBryan Artiss Other [facility]10-14-2017Seasonal trivalent influenza vaccine, adjuvanted, preservative Migdalia Lopez Work Phone: [facility]10-11-2017 pneumococcal conjugate vaccine, 13 valPatric Lopez Other [facility]01-12-2017influenza, seasonal, injectable, preservative Migdalia Lopez Work Phone: [facility]02-23-2016 pneumococcal conjugate vaccine, 13 valentDO Quang Lopez Work Phone: [facility]12-12-2014influenza, high dose seasonal, preservative-RodolfoO Quang Lopez Work Phone: [facility]11-26-2013influenza, high dose seasonal, preservative-RodolfoO Quang Lopez Work Phone: [facility]11-26-2013 pneumococcal polysaccharide vaccine, 23 valPatric Lopez Other [facility]01-20-2010 TORADOL/KETOROLAC 15 mg/mlQuang Lopez Other [place] [employer] Other Payers DatePayer CategoryPayerPolicy [id number]-nso [id number] [id number] Regular [id number] [employer] [id number] 2.16.84[id number] 2.16.840.1.227360.3.579.2.531 [id number] 2.16.[id number] 2.16.840.[id number] 2.16.840.1.124661.3.579.2.531 [id number] 2.16.840.1.6[id number] 2.16.840.1.076198.3.579.2.531 Social History DateTypeDetailFacilityUnknown if ever smokedLascaux Co[employer] Other Sex Assigned At BirthSex Assigned At Truveris Other Start: 09-25-2020 End: 65-53-5978Mmwaukl smoking status NHISNever smoked tobacco (finding) [facility] Hospitaltart: 41-28-1679Qft Assigned At [facility]FeC[facility] Generaltart: 09-01-2024 End: 59-38-1220AriCzqxwr (finding)[facility] Clinical Notes 08-25-2013 to 07-23-2025 Note Date & ZcwnYzkxFnakckkw80-43-1180 Evaluation note* Author Noelle Escalante [facility] HospitalAuthoredSeptember 2024 2:05pmThe above note written by JULISA Lira acting as human recorder, note dictated by Dr. Quang Lopez. [facility] Work Phone: 1(983) 373-127909-19-2025 Radiology Diagnostic study noteSAMARITAN [place] [address] CT Scan Report Signed Patient: Kavya Cade MR#: [id number] : 1950 Acct:[id number] Age/Sex: 75 / F ADM Date: 5 Loc: CT Room: Type: [facility] Attending Dr: Quang Lopez DO Copies to: Quang Lopez DO~ Ordering Provider: Quang Lopez DO Date of Service: 07/13/25 CT/CT abdomen pelvis w con: R10.9 - Unspecified abdominal pain CT Abdomen and Pelvis withcontrast TECHNIQUE: Axial imaging with 2-D reconstruction. The CT exam was performed using one or more the following dose reduction techniques: Automated exposure control, adjustment of the MA and/or Kv according to patient size, or use of theiterative reconstruction technique. COMPARISON: None History: Abdominal pain. Back pain. LIMITATIONS: None LOWER THORAX Unremarkable LIVER: Mild hepatic steatosis. GALLBLADDER: Cholecystectomy clips identified. BILE DUCTS: No dilatation SPLEEN: Unremarkable PANCREAS: Unremarkable ADRENAL GLANDS: Unremarkable KIDNEYS:A 2 cm left renal cyst. There are no obstructive uropathy AORTA: No abdominal aortic aneurysm identified. Atherosclerosis. RETROPERITONEUM: No significant retroperitoneal abnormalities identified. MESENTERY:Unremarkable STOMACH:Gastric surgery changes SMALL BOWEL: The small bowel loops are nondistended. APPENDIX: The appendix is normal. COLON: Nondistended. Small amount of stool throughout the colon. URINARY BLADDER: Urinary bladder is unremarkable. REPRODUCTIVE SYSTEM: Reproductive structures are unremarkable. PNEUMOPERITONEUM: None PERITONEAL FLUID:None BONY STRUCTURES: Degenerative change ABDOMINAL WALL: Unremarkable CT/CT abdomen pelvis w con IMPRESSION: No acute inflammatory changes. No abdominal mass. Mild constipation. No abdominal wall hernia. A gastric surgery changes. Impression dictated by: Roman Cadena M.D. 07/13/2025 3:50 PM Dictation Location: [place] [address] Transcribed By: [facility] 07/13/25 [id number] Dictated By: Roman Cadena DO 07/13/25 [id number] Signed By: 07/13/25 1550 [facility]09-12-2025 Evaluation note* Diagnosis Onset Date Resolution Status Admit Date Abdominal pain acuteSept2024 10:34amAbnormal bruisingacuteSept2024 10:34amBowel habit changesacuteSept2024 10:34amMass of abdomenacute July 06, 2025 10:34amUnintentional weight lossacuteJuly 06, 2025 10:34am [facility] Work Phone: 1(409) 153-725811-06-2024 Evaluation note* Author Wendy Hankins [facility] HospitalAuthoredNovember 2023 9:49amThe above note written by Wendy EGAN acting as human recorder, note dictated by Dr. Quang Lopez. [facility] Work Phone: 1(544) 466-974810-16-2023 Evaluation note* Encounter Date Diagnosis Assessment Notes Treatment Notes Treatment Clinical Notes Jul, Hyperglycemia (ICD-10 - R73.9) Glucose is well controlled. Renal function is stable. She is to continue with plan of care as outlined. Thyroid level and remainder of electrolytes are also normal. Jul,Hyperlipidemia (ICD-10 - E78.5) Recent lab results reviewed. Lipids are normal. This is diet controlled. LIver enzymes are normal. I do encourage patient to continue with diet modification and remain as active as possible Jul,Hypertension (ICD-10 - I10) Blood pressure is well controlled on current medication. Denies any chest pain or sob. No palpitations. Chemestries are normal along with blood count. I will not make any changes in medication at this time Jul,Iron deficiency (ICD-10 - E61.1) Recent iron levels from May are normal. CBC is normal. Jul,Vitamin B12 deficiency (ICD-10 - E53.8) Vitamin B12 levels are within normal limits Jul,Vitamin D deficiency, unspecified (ICD-10 - E55.9) Vitamin D level is normal. I will have her continue with supplement as ordered Jul,Lumbar pain (ICD-10 - M54.50) Patient does report episodic low back pain. This is aggravated with sitting and lying in bed. Pain is worse when she gets up and gets moving. Reports stiffness and pain at waistline. Pain with palpation. No radicuIopathy presently. I do recommend getting plain films to start. She is in agreement. She may use tylenol and voltaren gel for pain control Jul,History of COVID-19 (ICD-10 - Z86.16) Patient reports that she did aquire Covid back in May after a cruise and this did cause her to lose some weight secondary to her symptoms. Weight will be monitored Jul,nastomotic ulcer (ICD-10 - K28.9)2019 [employer] Other 08-29-2023 Evaluation note* Encounter Date Diagnosis Assessment Notes Treatment Notes Treatment Clinical Notes May, Hypertension (ICD-10 - I10) [employer] Other 02-01-2023 Evaluation note* Encounter Date Diagnosis Assessment Notes Treatment Notes Treatment Clinical Notes Nov, Hypertension (ICD-10 - I10) Blood pressure is excellent in office today. Her weight is stable. She is tolerating the medicationfine and refill will be provided for her today Nov,nastomotic ulcer (ICD-10 - K28.9)2019 Carafate tablets are on back order. She has been using it every other day. Right now she does not need any meds ordered and will call closer to time Nov,Hyperglycemia (ICD-10 - R73.9) Lab ordered for her next visit. A1C added due to elevated glucose hx Nov,Hyperlipidemia (ICD-10 - E78.5) Lab ordered for next visit Nov,Iron deficiency (ICD-10 - E61.1) Lab ordered for next visit. Hx of gastric bypass. Nov,Vitamin B12 deficiency (ICD-10 - E53.8) Hx of gastric bypass. Lab ordered for next visit Nov,Vitamin D deficiency, unspecified (ICD-10 - E55.9) Hx lf gastric bypass. Lab ordered for next visit [employer] Other 07-27-2022 Evaluation note* Encounter Date Diagnosis Assessment Notes Treatment Notes Treatment Clinical Notes Apr, Medicare annual wellness visit, initial (ICD-10 - Z00.00) Personalized health advice was given to the beneficiary including a written plan for screenings discussed and provided. Advanced care planning reviewed and/or information given as requested. The above visit was performed by (Angie Rodriguez LPN ), under direct supervision of ( Quang Lopez). Document reviewed and amended by provider signed below. Apr,Hypertension (ICD-10 - I10) Blood pressure appears to be well controlled. Pt is to continue with the above medication and we will continue to monitor. Apr,ariatric surgery status (ICD-10 - Z98.84)2013 Weight is stable at this time. Pt is to continue with the above medication and we will continue to monitor. Apr,Vitamin D deficiency, unspecified (ICD-10 - E55.9) Vitamin D level is within normal limits. Pt is to continue with the above medication and we will continue to monitor. Apr,Iron deficiency (ICD-10 - E61.1) Blood levels are stable at this time . We will continue to monitor. Apr,creening mammogram for breast cancer (ICD-10 - Z12.31) Mammogram order provided, the patient encourged to have this done, the patient declines DEXA scan order. [employer] Other 11-01-2013 History general Narrative - Reported* Type Description Date Medical History Gerd Medical HistoryHTNMedical HistoryFibromyalgiaMedical Historyinsulin resistant Medical Zuwhnxp47/2013 Mammogram; 10/07/2015 mammogram-benignMedical History 08/07/13 Pap TestMedical Hanrosz80/2015 Vascular screeningMedical History 12/03/15 Carotid DuplexMedical Kaqgosv18/17/15 pap test - normal; CC Sharon Cole CNPMedical History12/28/16 Mammogram-NegativeMedical Mrueflv8112/29/2017 Mammogram - NegativeMedical HistoryCologuard ordered- postiveMedical History 01/20/19 Colonscopy -- no repeat recommendedMedical Wixbvcz24/03/19 Community outreach vascular with echoMedical Egaktsj4505/07/2020 [place] [address], 1972Surgical HistoryT&Y5417Wpquvbey Historyheel spurs 1985Surgical Historyright dlttjsqo7902Afbiuaty HistoryBariatric surgery03/26/2014 Surgical Historygallbladder03/26/2014Surgical Historyhiatal hernia03/26/2014Surgical SgnepfuUkzluandgv77/29/19Hospitalization Zhnoyquihfysebxmddm6080Otjtfqxqembgoyb WsvqagsKkmpcwxxm9456 [employer] Other [id number] History general Narrative - Reported* Type Description Date Medical History Gerd Medical HistoryHTNMedical HistoryFibromyalgiaMedical Historyinsulin resistant Medical Puxsnbu69/2013 Mammogram; 10/07/2015 mammogram-benignMedical History 08/07/13 Pap TestMedical Gfmrugh36/2015 Vascular screeningMedical History 12/03/15 Carotid DuplexMedical Ffaineh15/17/15 pap test - normal; CC Sharon Cole CNPMedical History12/28/16 Mammogram-NegativeMedical Dbeimzt9012/29/2017 Mammogram - NegativeMedical HistoryCologuard ordered- postiveMedical History 01/20/19 Colonscopy -- no repeat recommendedMedical Ampccks65/03/19 Community outreach vascular with echoMedical Qiglnzf6305/07/2020 EGDMedical Pubhcvi4906/18/2022 MammogramSurgical Historyc-[place] [address], 1972Surgical HistoryT&E1745Nprtxxpq Historyheel fjfdi9907Fzdvfliz Historyright adllupqw5352 Surgical HistoryBariatric surgery03/26/2014Surgical Historygallbladder03/26/2014 Surgical Historyhiatal hernia03/26/2014Surgical QvpwvopOpflynnpzy36/29/19 Hospitalization Glmoswalhzrkmuaftrd7383Etwllobkizfrzsf PolpfvbLnmrhgtqg4258 [employer] Other Evaluation noteNo assessment information available [facility] Work Phone: Evaluation note* Author Noelle Escalante [facility] HospitalAuthoredApril 2023 11:42amThe above note written by JULISA Lira acting as human recorder, note dictated by Dr.Bryan Lopez. [facility] Work Phone: Evaluation note* Author Wendy Hankins [facility] HospitalAuthoredNovember 2023 9:49amThe above note written by Wendy EGAN acting as human recorder, note dictated by Dr. Quang Lopez. [facility] Work Phone: Evaluation note* Author Phyllis Ayoub [facility] HospitalAuthoredJune 2024 1:35pmSooner if needed, ER if concerns. The above note written by Phyllis Ayoub LPN, acting as human recorder, note dictated by Dr. Quang Lopez. [facility] Work Phone: Evaluation note* Diagnosis Onset Date Resolution Status Admit Date Abdominal pain acuteSept2024 10:34amAbnormal bruisingacuteJuly 06, 2025 10:34amBowel habit changesacuteJuly 06, 2025 10:34amMass of abdomenacute July 06, 2025 10:34amUnintentional weight lossacuteJuly 06, 2025 10:34am [facility] Work Phone: Evaluation note* Author Noelle Escalante [facility] HospitalAuthoredSept2024 2:05pmThe above note written by JULISA Lira acting as human recorder, note dictated by Dr. Quang Lopez. [facility] Work Phone: Reason for referral (narrative)No reason for referral information availableHarrison Community Hospital Work Phone: Summary Purpose Family History No Family History Records Found Relationship Condition Age at Onset Recorded Date/T surekha father Heart disease Unknown Not SpecifiedHeart diseaseUnknownMalignant neoplasm of lungUnknownbrother Malignant neoplasm of throatUnknown Relationship Condition Age at Onset Recorded Date/T surekha father Heart disease Unknown DeceasedUnknownNot SpecifiedHeart diseaseUnknownMalignant neoplasm of lung UnknownbrotherMalignant neoplasm of throatUnknownnatural sonGraves' disease UnknownsisterFibromyalgiaUnknown Relationship Condition Age at Onset Recorded Date/T surekha father Heart disease Unknown DeceasedUnknownmotherHeart diseaseUnknownMalignant neoplasm of lungUnknown brotherMalignant neoplasm of throatUnknownsonGraves' diseaseUnknownsister FibromyalgiaUnknown Advance Directives No Advanced Directives Records Found Advance Directive Response Recorded Date/ Time Advance Directives No November 11:06am Advance Directive Response Recorded Date/ Time Advance Directives No November 10:06am Chief Complaint and Reason for Visit Chief Complaint i10 r73.9 e78.5 e61. 1 e53.8 e55.9 Chief Complaint i10 r73.9 e78.5 e61. 1 e53.8 e55.9 Screening M54.50 Chief Complaint Amb Documentation 6 MONTHReason for VisitGastric ulcer Hypertension Post-menopausal Chief Complaint Z78.0 screemomg Chief Complaint Z78.0 screemomg I10 E78.5 E55.9 Z78.0 Medicare wellnessReason for VisitHyperlipidemia Post-menopausal Vitamin D deficiency, unspecified Medicare annual wellness visit, subsequent Right arm pain Right shoulder pain Chief Complaint Admit Date Z78.0 August 14, 2024 1 :14pm screemomg August 14, 2024 1 :15pm I10 E78.5 E55.9 Z78.0 August 24, 2024 8:55am Medicare wellness August 30, 2024 8 :37am M25.511 M79.601 August 31, 2024 1 1:55am Reason for Visit Admit Date Hyperlipidemia August 30, 2024 8 :37am Post-menopausal August 30, 2024 8 :37am Vitamin D deficiency, unspecified Novemb er 2023 8:37am Medicare annual wellness visit, subseque nt August 30, 2024 8:37am Right arm pain August 30, 2024 8 :37am Right shoulder pain August 30, 2024 8 :37am Chief Complaint Admit Date 6 month f/u April 03, 2025 12:5 5pm Reason for Visit Admit Date Fibromyalgia April 03, 2025 12:5 5pm Gastric ulcer April 03, 2025 12:5 5pm Right shoulder pain April 03, 2025 12:5 5pm Chief Complaint Admit Date per bpk see te July 06, 2025 10:34am Reason for Visit Admit Date Abdominal pain July 06, 2025 10:34am Abnormal bruising July 06, 2025 10:34am Bowel habit changes July 06, 2025 10:34am Mass of abdomen July 06, 2025 10:34am Unintentional weight loss June 10:34am Chief Complaint Admit Date per bpk see te July 06, 2025 10:34am R23.3 July 09, 2025 10:02am R10.9 R19.00 R23.3 R19.4 R63.4 July 13, 2025 11:32am Chief Complaint Admit Date per bpk see te July 06, 2025 10:34am R23.3 July 09, 2025 10:02am R10.9 R19.00 R23.3 R19.4 R63.4 July 13, 2025 11:32am review CT-abd pain- appt moved up 2024 1:05pm Reason for Visit Admit Date Abdominal pain July 06, 2025 10:34am Abnormal bruising July 06, 2025 10:34am Bowel habit changes July 06, 2025 10:34am Mass of abdomen July 06, 2025 10:34am Unintentional weight loss June 10:34am Abdominal pain July 23, 2025 1:05pm Abnormal bruising July 23, 2025 1:05pm Hyperglycemia July 23, 2025 1:05pm Unintentional weight loss June 1:05pm Chief Complaint Admit Date per bpk see te July 06, 2025 10:34am R23.3 July 09, 2025 10:02am R10.9 R19.00 R23.3 R19.4 R63.4 July 13, 2025 11:32am review CT-abd pain- appt moved up 2024 1:05pm R10.9 R63.4 K28.9 July 31, 2025 8: 17am Chief Complaint Admit Date per bpk see te July 06, 2025 10:34am R23.3 July 09, 2025 10:02am R10.9 R19.00 R23.3 R19.4 R63.4 July 13, 2025 11:32am review CT-abd pain- appt moved up 2024 1:05pm R10.9 R63.4 K28.9 July 31, 2025 8: 17am [id number] R63.4 R10.9 August 092024 9:49am Additional Source Comments INFORMATION SOURCE (unrecogn ized section and content) DATE CREATED AUTHOR 04/20/2018 [facility] DATE CREATED AUTHOR AUTHOR'S ORGANIZ ATION 03/26/2024 [facility] DATE CREATED AUTHOR AUTHOR'S ORGANIZ ATION 08/11/2025 [facility] REASON FOR VISIT (unrecogniz ed section and content) medicare wellness initial6 m ont Follow upRefills6 month Follow up Care Teams (unrecognized sec tion and content) Team Status: Active Member Role Status Dates Quang Lopez DO Primary Care Provider Active Team Status: Inactive Member Role Status Dates Quang Lopez DO Primary Care Provide r, Attending Provider Active Start: August 14, 2024 End: August 14, 2024 Team Status: Inactive Member Role Status Dates Quang Lopez DO Primary Care Provider Active Sta rt: August 14, 2024 End: August 14eferral SelfAttending ProviderActiveStart: August 14, 2024 End: August 14, 2024 Team Status: Active Member Role Status Dates Quang Lopez DO Primary Care Provider Active Sta rt: December 23, 2023 Simona Carlos ProviderActiveStart: December 23, 2023 Team Status: Inactive Member Role Status Dates Quang Lopez DO Primary Care Provide r, Attending Provider Active Start: February 16, 2024 End: February 16, 2024 Team Status: Inactive Member Role Status Dates Quang Lopez DO Primary Care Provide r, Attending Provider, Referring Provider Active Team Status: Inactive Member Role Status Dates Quang Lopez DO Primary Care Provider, Attending Provi reese Active Team Status: Inactive Member Role Status Dates Quang Lopez DO Primary Care Provider, Referring Provi reese Active Referral SelfAttending ProviderActive Team Status: Inactive Member Role Status Faiza Lopez DO Primary Care Provide r, Attending Provider Active Start: August 24, 2024 End: August 24, 2024 Team Status: Inactive Member Role Status Dates Quang Lopez DO Primary Care Provide r, Attending Provider Active Start: August 30, 2024 End: August 30, 2024 Team Status: Inactive Member Role Status Dates Quang Kuns , DO Primary Care Provide r, Attending Provider Active Start: August 31, 2024 End: August 31, 2024 Team Status: Inactive Member Role Status Faiza Lopez DO Primary Care Provide r, Attending Provider Active Start: April 03, 2025 End: April 03, 2025 Team Status: Inactive Member Role Status Faiza Lopez DO Primary Care Provider Active Sta rt: July 06, 2025 End: July 06armando Lopez , DOAttending ProviderActiveStart: July 06, 2025 End: July 06, 2025 Team Status: Inactive Member Role Status Faiza Lopez DO Primary Care Provider Active Sta rt: July 09, 2025 End: July 09armando Lopez DOAttending ProviderActiveStart: July 09, 2025 End: July 09, 2025 Team Status: Inactive Member Role Status Faiza Lopez DO Primary Care Provider Active Sta rt: July 13, 2025 End: July 13armando Lopez DOAttending ProviderActiveStart: July 13, 2025 End: July 13, 2025 Team Status: Inactive Member Role Status Faiza Lopez DO Primary Care Provider Active Sta rt: July 23, 2025 End: July 23armando Lopez DOAttending ProviderActiveStart: July 23, 2025 End: July 23, 2025 Team Status: Inactive Member Role Status Faiza Lopez DO Primary Care Provider Active Sta rt: July 31, 2025 End: July 31armando Lopez DOAttending ProviderActiveStart: July 31, 2025 End: July 31, 2025 Team Status: Inactive Member Role Status Faiza Lopez DO Primary Care Provider Active Sta rt: August 09, 2025 End: August 09armando Lopez , DOAttending ProviderActiveStart: August 09, 2025 End: August 09, 2025 Goals (unrecognized section and content) Goals may be documented in a n alternate section FOR RECORDS PERTAINING TO PATIENTS WHO ARE OR HAVE BEEN ENROLLED IN A CHEMICAL DEPENDENCY/SUBSTANCEABUSE PROGRAM, SOME INFORMATION MAY BE OMITTED. This clinical summary was aggregated from multiple sources. Caution should be exercised in using it in the provision of clinical care. This summary normalizes information from multiple sources, and as a consequence, information in this document may materially change the coding, format and clinical context of patient data. In addition, data may be omitted in some cases. CLINICAL DECISIONS SHOULD BE BASED ON THE PRIMARY CLINICAL RECORDS. [facility]. provides no warranty or guarantee of the accuracy or completeness of information in this document.
[2025-08-31 10:45] LABS: Hematocrit 41.6 % (36.0-48.0); Hemoglobin 13.7 g/dL (12.0-16.0); Immature Granulocytes Abs Auto 0.01 10^3/uL (0.00-0.03); Immature Granulocytes Pct Auto 0.2 % (0.0-0.5); Lymphocytes Absolute Auto 1.5 10^3/uL (1.2-3.8); Mean Corpuscular HGB Conc 32.9 g/dL (29.9-35.2); Mean Corpuscular Hemoglobin 31.6 pg (26.7-34.0); Mean Corpuscular Volume 95.9 fL (81.0-99.0); Platelet Count 216 10^3/uL (150-450); Red Blood Count 4.34 10^6/uL (4.20-5.40); White Blood Count 4.6 10^3/uL (4.0-11.0)
[2025-08-31 11:34] LABS: Alanine Aminotransferase 40 U/L (14-59); Albumin Globulin Ratio 1.1; Albumin Level 3.3 g/dL (3.4-5.0); Alkaline Phosphatase 90 U/L (46-116); Anion Gap 9.7; Aspartate Amino Transferase 38 U/L (15-37); Blood Urea Nitrogen 24.0 mg/dL (7.0-18.0); Calcium 9.4 mg/dL (8.5-10.1); Carbon Dioxide 30.7 mmol/L (21.0-32.0); Chloride 107 mmol/L (98-107); Cholesterol 167 mg/dL (<=200); Estimated GFR (African America >60 (>=60 mL/min/1.73m^2); Estimated GFR (Non-African Ame >60 (>=60 mL/min/1.73m^2); Globulin 3.0 g/dL; Glucose 110 mg/dL (74-106); HDL Cholesterol 72 mg/dL (40-60); Potassium 3.4 mmol/L (3.5-5.1); Sodium 144 mmol/L (136-145); Thyroid Stimulating Hormone 1.823 uIU/mL (0.358-3.740); Total Protein 6.3 g/dL (6.4-8.2); Triglycerides 80 mg/dL (<=150); VLDL CHOLESTEROL 16.0 mg/dL
== END 2025-08-31 09:54 | disposition home or self-care (01) ==
LOC: LAB 10:00
PROVIDERS: PCP Family Medicine; Visit Provider Family Medicine
DX: E55.9 Vitamin D deficiency, unspecified (principal)
CPT/HCPCS: 36415; 80053; 80061; 82306; 83036; 84443; 85025